=== PATIENT | female | born 1985 | race Caucasian/White ===

== ENCOUNTER → 2018-07-03 09:33 | Outpatient (CLI) | payer MEDICAID, SELFPAY ==
[2018-07-03 10:45] LABS: Hematocrit 38.2 % (37-47); Mean Corp Hgb Conc 31.4 g/gl (32-36); Mean Corpuscular Hgb 26.4 pg (27.0-32.0); Mean Corpuscular Volume 84.1 fL (81-99); Mean Platelet Vol. 11.5 fl (6.2-12.0); Platelet Count 228 K/mm3 (150-450); RBC Distribution Width CV 15.6 % (11.6-14.6); Red Blood Count 4.54 M/mm3 (4.2-5.4); White Blood Count 5.2 K/mm3 (4.4-11.0)
[2018-07-03 10:50] LABS: Scan Indicated on CBC? Y/N NO
[2018-07-03 11:11] LABS: Ferritin 12 ng/mL (8-252); Free T3 3.1 pg/mL (2.18-3.98); T4 Free Direct 0.89 ng/dL (0.76-1.46); Thyroid Stim Hormone (TSH) 0.98 uIU/mL (0.358-3.74)
[2018-07-03 13:22] LABS: Chlamydia Trachomatis by PCR Negative (Negative); Neisserai gonorrhoeae by PCR Negative (Negative); Probe Check PASS; Sample Adequacy Control PASS; Specimen Processing Control PASS
[2018-07-03 13:30] LABS: Probe Check PASS; Sample Adequacy Control PASS; Specimen Processing Control PASS; Trichomonas Vag DNA by PCR Negative (Negative)
[2018-07-04 03:42] LABS: Rapid Plasmin Reagin (RPR) NONREACTIVE (NONREACTIVE)
[2018-07-04 11:29] LABS: Hep C Antibodies <0.1 s/co ratio (0.0-0.9)
[2018-07-04 12:36] LABS: HIV - WCH Non-Reactive (Nonreactive)
[2018-07-09 11:22] LABS: HPV APTIMA, High Risk Negative (Negative)
== END ==
PROVIDERS: Visit Provider Obstetrics & Gynecology
DX: Z12.4 Encounter for screening for malignant neoplasm of cervix (principal); Z11.3 Encounter for screening for infections with a predominantly sexual mode of transmission; N92.0 Excessive and frequent menstruation with regular cycle; E03.9 Hypothyroidism, unspecified
CPT/HCPCS: 36415; 82728; 84439; 84443; 84481; 85027; 86592; 86703; 86803; 87491; 87591; 87661; 88175; G0145

== ENCOUNTER 2018-12-12 06:01 | Day surgery (SDC) | payer MEDICAID, SELFPAY ==
[2018-12-09 14:36] VITALS: BP 124/72; PULSE 81; RESP 16; TEMP 36.7; O2SAT 100; BMI 32.3
[2018-12-09 15:39] LABS: Hematocrit 36.5 % (37-47); Hemoglobin 11.8 g/dl (12.0-15.0); Mean Corp Hgb Conc 32.3 g/gl (32-36); Mean Corpuscular Hgb 27.5 pg (27.0-32.0); Mean Corpuscular Volume 85.1 fL (81-99); Mean Platelet Vol. 12.3 fl (6.2-12.0); Platelet Count 231 K/mm3 (150-450); RBC Distribution Width CV 14.5 % (11.6-14.6); RBC Distribution Width SD 43.9 fl (35.1-43.9); Red Blood Count 4.29 M/mm3 (4.2-5.4); White Blood Count 7.4 K/mm3 (4.4-11.0)
[2018-12-09 15:50] LABS: Scan Indicated on CBC? Y/N NO
[2018-12-09 15:51] LABS: Partial Thromboplast Time 27.3 Seconds (24.1-36.2)
--- NOTE | 2018-12-11 10:10 | HP.PCM_ITS ---
- Problem List (1) Encounter for sterilization Status: Acute History and Physical Date of Admission: 12/12/18 - Preop H&P prepared 12/09/18 Date: 12/09/2018 Name: MALINI GARCIA Age: 33 Date of : 1985 HISTORY OF PRESENT ILLNESS: On 12/09/2018, Malini Garcia, a 33 year old female 1 0 0 0 1, presented for: -- Pre-Op -- Malini is here for pre-op appt. Very anxious regarding anesthesia. Hoping for anesthesia consult today. Does not desire future childbearing. Planning Lab BTO. Consents are signed and packet provided. LMT as above. Plans laparoscopy bilateral salpingectoy. shm ALLERGIES: Nsaids, Laryngeal edema, Amoxicillin, Tachycardia, Flagyl, Sob, Percocet, Tachycardia, Amoxicillin, Tachycardia, Flagyl, Sob, NSAIDS, Laryngeal edema, Percocet and Tachycardia MEDICATIONS HISTORY: Patient is also takin. Ativan 1 mg tablet, One pill by mouth once a day as needed 2. Bystolic 5 mg tablet, One pill by mouth once a day 3. omeprazole 20 mg capsule,delayed release, 1 PO QD 4. ParaGard T 380A 380 square mm intrauterine device, As Directed REVIEW OF SYSTEMS: GENERAL - Denies fever, or chills SKIN - Denies skin changes EYES - Denies visual changes EARS - Denies difficulty hearing NOSE - Denies nasal congestion or bleeding MOUTH - Denies sore throat or difficulty swallowing NECK - Denies pain or swelling RESPIRATORY - Denies shortness of breath or wheezing CARDIOVASCULAR - Denies palpitations or chest pain GASTROINTESTINAL - Denies nausea, vomiting, diarrhea, constipation GENITOURINARY - Denies dysuria, frequency of urination, incontinence of urine MUSCULOSKELETAL - Denies joint or muscle pain NEUROLOGICAL - Denies localized numbness or weakness PSYCHIATRIC - Denies depression or anxiety ENDOCRINE - Denies heat or cold intolerance, weight loss or gain HEMATO-IMMUNOLOGIC - Denies excesive bleeding with cuts PAST HISTORY: Breast/Ovarian/Colon Cancers - Denies Infections - Chlamydia and HPV Illnesses - depression/anxiety, POTs syndrome- tachycardia Accidents - no injuries of consequence History of Abnormal PAPS - YES --unknown severity Hospitalizations - Childbirth ETOH dependency - drinks 4x/wk; SURGICAL HISTORY: 1. [place] Teeth Removal 2. 10/28/2006 breast augmentation MENSTRUAL HISTORY: LMP Known?- ApproximateAmount/Duration - 6-7 DAYS, Regularity - Regular, Frequency - 28 days, LMP - 11/23/18, Age Onset Menarche - 16 PAST PREGNANCIES: Total Pregnancies - 1; Full Term Pregnancies - 1; Premature - 0; Abortions, Induced - 0; Abortions, Spontaneous - 0; Ectopics - 0; Multiple Births - 0; Living Children - 1 FAMILY HISTORY: Father - Unknown Disease; Father - Ischemic heart disease; Father - FH: Hypertension; Mother - Thyroid disease; Sister - Thyroid disease; MaternalGrandparent - FH: Diabetes mellitus type 2; SOCIAL HISTORY: Alcohol Use - occasionally Smoking - smokes 1/3 ppd, ETQ Diet - vegan Lifestyle - moderate stress lifestyle Exercise - active Seat Belt Use - always Employer - [employer] Job Description - [employer] Illicit Drug Use - denies use of street drugs Sexual Activity - multiple sexual partners and 30 partners in past Residence - with daughter Hours Worked - 40 hours per week Children Name(s) - Margaret Control - paragard IUD PHYSICAL EXAMINATION BP- 130/82 Sitting, Right arm, regular cuff Weight- 219.00 lbs Height- 67.75 inch BMI:33.62 CONSTITUTIONAL - NAD, well nourished, and well developed SKIN - No rash, lesions, or ulcers HEENT - normocephalic, atraumatic, sclerae anicteric LUNGS - CTA x2 without wheezes, crackles or rales CARDIAC - Regular rate and rhythm without rubs, murmurs, or gallops ABDOMEN - Without hepatosplenomegaly, distention, masses, rebound, or guarding; normal bowel sounds; no hernias EXTREMITIES - No edema or calf tenderness NEUROLOGICAL - normal gait, normal balance, normal motor PSYCHIATRIC - A and O to time, place, person, mood and affect ASSESSMENT: PLAN BY DIAGNOSIS: 1. Encounter For General Counseling And Advice On Contraception Plan for laparoscopic bilateral salpingectomy for permanent sterilization Procedural r/b/i/a reviewed and consents signed Preop prep reviewed - NPO @ [facility] prior to procedure Preop labs pending NO NSAIDS or OXYCODONE Pt tolerates hydrocodone and tylenol however - will plan this for postoperative pain Will maintain Paragard IUD in interim
[2018-12-12 06:23] VITALS: BP 113/68; PULSE 80; RESP 16; TEMP 36.9; O2SAT 98; BMI 32.3
[2018-12-12 06:30] LABS: Internal QC Validated? YES +Cl - CLEAR BKGD; Pregnancy, Urine Negative Negative
[2018-12-12 07:10] LABS: AST(SGOT) 15 U/L (15-37); Alanine Aminotransfer ALT/SGPT 23 U/L (13-56); Albumin, Serum 3.5 g/dL (3.2-5.0); Alkaline Phosphatase 63 U/L (45-117); Anion Gap 8 (5-15); BUN 13 mg/dL (7-18); BUN/Creat Ratio 17.8 RATIO (10-20); Bilirubin, Direct 0.12 mg/dL (0.00-0.30); Calcium,Total 8.3 mg/dL (8.5-10.1); Chloride 108 mmol/L (98-107); Creatinine, Serum 0.73 mg/dL (0.55-1.02); EST Glomerular Filtration Rate 98 mL/min (>60); Est Glom Filt Rate - Afr Amer 119 mL/min (>60); Estimated Creatinine Clearance 115.62 ml/min; Globulin 3.5 g/dL (2.2-4.2); Glucose 105 mg/dL (74-106); Potassium 4.4 mmol/L (3.5-5.1); Sodium Level 141 mmol/L (136-145)
--- NOTE | 2018-12-12 07:15 | FALS_PTH ---
PATIENT: MALINI NAVARRETE LOC: [facility] [place] U#:[id number] AGE/SX: 33/F ROOM: RE12/12/[address]: Dr. Katlyn Massey MD : 1985 BED: DIS: 12/12/2018 SPEC #: [id number] RECD: 12/12/18 14:58 STATUS: SREEDHAR RESandy #: [id number] LINDA: 12/12/18 07:[address]: Katlyn Ruff DEPT: SURGICAL PATHOLOGY RECD BY: Christ Livingston ENTERED: 12/15/18 08:09 SP TYPE: FALL TUBES OTHR DR: Dr. Darlene Mcnulty, DO Tissues: Fallopian tube Procedures: Surgery Specimen Level II HEADER OPERATION: Laparoscopic salpingectomy PRE-OP DIAGNOSIS: Sterilization request TISSUE SUBMITTED: Bilateral fallopian tubes (tie on right) MICROSCOPIC DIAGNOSIS Bilateral fallopian tubes, salpingectomy: Bilateral fallopian tubes including fimbrial ends, no pathologic diagnosis. Left paratubal cyst. ALLYSSA:jose 12/16/18 MICROSCOPIC DESCRIPTION Slides are reviewed. GROSS DESCRIPTION Received is one container labeled with the patient's name and designated bilateral fallopian tubes. The specimen consists of bilateral fallopian tubes including fimbrial ends. The right tube is identified by a tie and measures 4.5 cm in length and 0.5 cm in diameter. The fallopian tube measures 5 cm in length and 0.5 cm in diameter. A paratubal cyst is noted measuring 0.8 cm in greatest dimension. A piece of adipose tissue is also attached adjacent to the paratubal cyst measuring 1 cm in greatest dimension. Sections reveal unremarkable cut surfaces. Advertiser sections are submitted in two cassettes as follows: 1 - right fallopian, 2 - left fallopian tube, paratubal cyst and adipose tissue. / ALLYSSA:jose 12/15/18 TC:5 CPT: 66968 x2
[2018-12-12] MEDS: Bupivacaine Mpf 0.5% 30 ML VIAL (08:00)
--- NOTE | 2018-12-12 08:06 | PCM.DC ---
- Discharge Diagnoses Current Active Problems: Laparoscopy Reason(s) for Visit for Discharge Instructions: Laparoscopic tube removal (salpingectomy) You will use the following diet at home:: No restrictions Your food should be the consistency of: Regular Discharge Activity: Return to Normal Activity May resume sexual activity in: - - 2-4 weeks Lifting Restrictions: 10 lb for 2 weeks Call your doctor if you observe: Fever of 101 or Higher, Inability to urinate, Inability to have a bowel movement, Using more than one pad per hour, Shortness of breath, Chest pain, Calf discomfort, Uncontrolled pain Suture Line Care: Avoid Pulling/Pushing Remove Dressing in (days):: 1 Cleanse incision/area with: Soap & Water Allergies/Adverse Reactions: Allergies amoxicillin [Amoxicillin] Allergy (Verified 12/09/18 14:24) Other metronidazole [From Flagyl] Allergy (Verified 12/09/18 14:24) Other Metronidazole HCl [From Flagyl] Allergy (Verified 12/09/18 14:24) Other NSAIDS (Non-Steroidal Anti-Inflamma Allergy (Verified 12/09/18 14:24) Angioedema oxycodone HCl [From Percocet] Adverse Reaction (Verified 12/09/18 14:24) Other Medications to take at Discharge Ferrous Sulfate 65 mg PO DAILY 12/09/18 L.acidoph,Paracasei, B.lactis [Probiotic] 1 each PO DAILY 12/09/18 Lorazepam [Ativan] 1 mg PO BID PRN PRN 12/09/18 Nebivolol HCl [Bystolic] 5 mg PO DAILY 12/09/18 Omeprazole [Prilosec] 20 mg PO DAILY 12/09/18 Docusate Sodium [Colace] 100 mg PO BID PRN PRN #60 capsule 12/12/18 Hydrocodone/Acetaminophen [Hydrocodon-Acetaminophen 5-325] 1 each PO Q6H PRN 7 Days #20 tablet 12/12/18 The following prescriptions were given: Docusate Sodium [Colace] 100 mg PO BID PRN PRN #60 capsule PRN Reason: Constipation Hydrocodone/Acetaminophen [Hydrocodon-Acetaminophen 5-325] 1 each PO Q6H PRN 7 Days #20 tablet PRN Reason: Severe Pain (6-10/10) Orders to be completed after discharge: Type & Screen Time Frame: 12/09/18, Facility: [facility], Location: Laboratory Partial Thromboplast Time Time Frame: 12/09/18, Location: Laboratory Basic Metabolic Profile (BMP) Time Frame: 12/09/18, Location: Laboratory CBC-Complete Blood Cnt No Diff Time Frame: 12/09/18, Location: Laboratory Liver Profile Time Frame: 12/09/18, Location: Laboratory Prothrombin Time w/INR Time Frame: 12/09/18, Location: Laboratory Primary Care Physician: Darlene Mcnulty DO [Primary Care Provider] - Test Results: Test results from this visit will be discussed in further detail at your follow-up appointment, if applicable. Please Follow Up With: Katlyn Rowan MD When: 2-4 weeks
--- NOTE | 2018-12-12 08:11 | PCM.OPRPT ---
Problem List (1) Encounter for sterilization Status: Acute Report of Operation Date of Procedure: 12/12/18 Pre-Operative Diagnosis: Sterilization request Post-Operative Diagnosis: Sterilization request Surgery/Procedure Performed:: Laparoscopic bilateral salpingectomy Description of Surgical Findings:: Normal-appearing uterus, tubes and ovaries senior investigator: Sean Lucero Type of Anesthesia:: General, Local Anesthesiologist: Romie Gong Specimen's removed: Right and left tubes Drains: Urine output 5 cc Estimated Blood Loss (mL): 3 cc Fluids Replaced: 800 cc Description of Procedure: Indications: Patient is a 33-year-old 1 para 1 desiring permanent sterilization. She was counseled regarding various sterilization methods as well as reversible contraceptives and opted to proceed with laparoscopic bilateral salpingectomy. Risks, benefits, indications and alternatives of procedure were reviewed. Informed consent was obtained. Procedure: The patient was taken to the operating room and sinus performed. She is placed in a dorsal supine position and induced under general anesthesia and intubated. She is then placed into dorsal lithotomy and her arms tucked at her sides. An examination under anesthesia was performed. The perineum and abdomen were prepped and draped in sterile fashion. Straight catheterization of the bladder was performed. Patient was placed into high lithotomy and the cervix was visualized and grasped using a single-tooth tenaculum tenaculum. [place] cannula was placed and secured to the tenaculum for uterine manipulation. Patient was placed into low lithotomy attention turned to the abdomen. An infraumbilical incision was made using a scalpel following infiltration with half percent Marcaine. Veress needle was placed with successful hanging drop test and no aspirate in the abdomen was insufflated to 15 mmHg. The Veress needle was removed and a 5 mm trocar was placed under laparoscopic guidance confirming entry into the abdominal cavity. A suprapubic pain administration was performed as well as placement of a second 5 mm port. The abdomen and pelvis were inspected uterus was notably retroverted thus I opted to proceed with placement of right and left lower quadrant 5 mm ports following local administration of Marcaine. Attention was turned to the left adnexa the left tubal fimbria was identified and salpingectomy performed using the Enseal device transecting the mesosalpinx distally and proximally to the level of the uterine cornua. In similar fashion right salpingectomy was also performed. The tubes were removed via the ports. There was excellent hemostasis. The procedure was deemed complete. The abdomen was desufflated and trochars removed from the abdomen. The skin was closed using 4-0 Monocryl and OpSite dressing and Steri-Strips were placed over the incisions. The patient was awakened, extubated and transferred to the recovery room without complication. She tolerated the procedure well. Sponge and needle counts were correct x2. - Complications None - Admit VTE Documentation VTE Present on Admission: No VTE Mechan Device Prophylaxis: SCD's VTE Pharm Prophylaxis ordered?: No
--- NOTE | 2018-12-12 08:16 | OP.PCM_ITS ---
Problem List (1) Encounter for sterilization Status: Acute Report of Operation Date of Procedure: 12/12/18 Pre-Operative Diagnosis: Sterilization request Post-Operative Diagnosis: Sterilization request Surgery/Procedure Performed:: Laparoscopic bilateral salpingectomy Description of Surgical Findings:: Normal-appearing uterus, tubes and ovaries reservationist: Sean Lucero Type of Anesthesia:: General, Local Anesthesiologist: Romie Gong Specimen's removed: Right and left tubes Drains: Urine output 5 cc Estimated Blood Loss (mL): 3 cc Fluids Replaced: 800 cc Description of Procedure: Indications: Patient is a 33-year-old 1 para 1 desiring permanent sterilization. She was counseled regarding various sterilization methods as well as reversible contraceptives and opted to proceed with laparoscopic bilateral salpingectomy. Risks, benefits, indications and alternatives of procedure were reviewed. Informed consent was obtained. Procedure: The patient was taken to the operating room and sinus performed. She is placed in a dorsal supine position and induced under general anesthesia and intubated. She is then placed into dorsal lithotomy and her arms tucked at her sides. An examination under anesthesia was performed. The perineum and abdomen were prepped and draped in sterile fashion. Straight catheterization of the bladder was performed. Patient was placed into high lithotomy and the cervix was visualized and grasped using a single-tooth tenaculum tenaculum. [place] cannula was placed and secured to the tenaculum for uterine manipulation. Patient was placed into low lithotomy attention turned to the abdomen. An infraumbilical incision was made using a scalpel following infiltration with half percent Marcaine. Veress needle was placed with successful hanging drop test and no aspirate in the abdomen was insufflated to 15 mmHg. The Veress needle was removed and a 5 mm trocar was placed under laparoscopic guidance confirming entry into the abdominal cavity. A suprapubic pain administration was performed as well as placement of a second 5 mm port. The abdomen and pelvis were inspected uterus was notably retroverted thus I opted to proceed with placement of right and left lower quadrant 5 mm ports following local administration of Marcaine. Attention was turned to the left adnexa the left tubal fimbria was identified and salpingectomy performed using the Enseal device transecting the mesosalpinx distally and proximally to the level of the uterine cornua. In similar fashion right salpingectomy was also performed. The tubes were removed via the ports. There was excellent hemostasis. The procedure was deemed complete. The abdomen was desufflated and trochars removed from the abdomen. The skin was closed using 4-0 Monocryl and OpSite dressing and Steri- Strips were placed over the incisions. The patient was awakened, extubated and transferred to the recovery room without complication. She tolerated the procedure well. Sponge and needle counts were correct x2. - Complications None - Admit VTE Documentation VTE Present on Admission: No VTE Mechan Device Prophylaxis: SCD's VTE Pharm Prophylaxis ordered?: No
[2018-12-12 08:18] VITALS: BP 107/57; BP 113/68; PULSE 90; RESP 16; TEMP 36.3; O2SAT 97
[2018-12-12 08:30] VITALS: BP 102/56; BP 113/68; PULSE 77; RESP 16; O2SAT 99
[2018-12-12 08:45] VITALS: BP 105/60; BP 113/68; PULSE 70; RESP 16; O2SAT 98
[2018-12-12 08:58] VITALS: BP 107/49; BP 113/68; PULSE 69; RESP 16; TEMP 36.5; O2SAT 98
[2018-12-12 11:40] VITALS: BP 113/68; BP 123/60; PULSE 75; RESP 16; TEMP 36.3; O2SAT 97
[2018-12-12] MEDS: HYDROcodone Bitartrate/Apap 5/325 Tablet PO (12:08)
== END 2018-12-12 12:11 | disposition home or self-care (01) ==
LOC: SDC 06:02 → AC 06:02
PROVIDERS: Family Provider Family Medicine; PCP Family Medicine; Referring Provider Obstetrics & Gynecology; Visit Provider Obstetrics & Gynecology
PROC: (CPT 58661; principal; 2018-12-12 07:00)
DX: Z30.2 Encounter for sterilization (principal); N83.8 Other noninflammatory disorders of ovary, fallopian tube and broad ligament; Z41.1 Encounter for cosmetic surgery; F17.210 Nicotine dependence, cigarettes, uncomplicated; Z97.5 Presence of (intrauterine) contraceptive device
CPT/HCPCS: 00840; 58661; 36415; 80048; 80076; 81025; 85027; 85610; 85730; 86850; 86900; 88302; J7120; C1760; J2405

== ENCOUNTER → 2018-12-23 18:33 | Outpatient (CLI) | payer MEDICAID, SELFPAY ==
[2018-12-12 06:23] VITALS: BMI 32.3
[2018-12-23 18:36] LABS: Red Blood Cells-Urine 0 SEEN /hpf (0-5)
[2018-12-23 19:52] LABS: Color, Urine Yellow (Yellow); Glucose, Dipstick Normal (Normal); Ketone-Dipstick 5 mg/dl (Negative); Leukocyte Esterase-Dipstick 100 /ul (Negative); Nitrite-Dipstick Negative (Negative); Occult Blood-Urine 10 /ul (Negative); Protein-Dipstick 15 mg/dl (Negative); Specific Gravity, Urine 1.025 (1.002-1.030); Urine Bilirubin Dipstick Negative (Negative); Urine Clarity Clear (Clear); Urine Urobilinogen 1 mg/dl (Normal)
[2018-12-23 20:01] LABS: Bacteria RARE /hpf (None Seen); Mucous, Urine 3+ /hpf (<or=2+); Squamous Epithelial Cells - UA 5-10 SEEN /hpf (5-10); White Blood Cells 0-5 SEEN /hpf (0-5)
== END ==
PROVIDERS: Family Provider Family Medicine; PCP Family Medicine; Referring Provider Obstetrics & Gynecology; Visit Provider Obstetrics & Gynecology
DX: N39.0 Urinary tract infection, site not specified (principal)
CPT/HCPCS: 81001

== ENCOUNTER 2019-02-02 18:11 | Emergency (ER) | payer MEDICAID, SELFPAY ==
[2019-02-02 18:11] VITALS: BP 143/69; PULSE 75; RESP 16; TEMP 36.3; O2SAT 98; BMI 32.5
--- NOTE | 2019-02-02 18:27 | ED.VIS.GEN ---
History of Present Illness Chief Complaint: Head Injury Informant: Patient Onset: Days - Blunt head trauma 3 days ago, Saturday Context: Sudden Onset Timing: Continuous Quality: Headache, sleeping more, photophobia, sensation of fog Location: Not applicable Current Severity: Mild Maximum Severity: Mild Worsened by: Head trauma Relieved by: Nothing Associated Symptoms: As after mentioned Narrative: Patient is a 33-year-old woman with history of coronary malformation who was sent to the emergency room after discussing her history with urgent care. She sustained blunt trauma on Saturday. There is no loss conscious. There is no history of vomiting. She does feel nauseous. She has had problems with sleep and light sensitivity. She is also had problems with feeling foggy. Prior similar symptoms: No Recent Illness/Hospitalization: No - Past Medical History (1) Supraventricular tachycardia Status: Chronic (2) History of breast augmentation Status: Resolved Past Medical History - Allergies and Home Meds Allergies/Adverse Reactions: Allergies amoxicillin [Amoxicillin] Allergy (Verified 02/02/19 18:14) Other metronidazole [From Flagyl] Allergy (Verified 02/02/19 18:14) Other Metronidazole HCl [From Flagyl] Allergy (Verified 02/02/19 18:14) Other NSAIDS (Non-Steroidal Anti-Inflamma Allergy (Verified 02/02/19 18:14) Angioedema oxycodone HCl [From Percocet] Adverse Reaction (Verified 02/02/19 18:14) Other Primary Care Physician: Darlene Mcnulty DO [Primary Care Provider] - Prior records reviewed: Yes Surgical History: noncontributory Lives: With Family Smoking Status: Current every day smoker Drugs: None Review of Systems General: Denies: Chills, Fever, Malaise, Subjective, Sweats Eyes: Reports: - - Patient does report light sensitivity. Denies: Visual changes - bilaterally, Blurred Vision - bilaterally, Diplopia ENT: Denies: Bilateral ear pain, Rhinorrhea, Sore throat Cardiovascular: Denies: Chest pain, Palpitations Respiratory: Denies: Dyspnea, Cough, Dyspnea on exertion Gastrointestinal: Reports: Nausea. Denies: Abdominal pain, Vomiting, Diarrhea, Constipation, Melena, Hematochezia, -, - Musculoskeletal: Denies: Myalgias, Arthralgias, Neck pain, Back pain, Swelling, Extremity Pain, -, - Skin: Denies: Rash, Wounds Neurological: Reports: Headache. Denies: Weakness, Parasthesia, Numbness, -, - Hematologic: Denies: Easy bruising, Easy bleeding Physical Exam Vital Signs/Narrative: Vital Signs Temp Pulse Resp BP Pulse Ox 02/02/19 18:11 97.3 F L 75 16 143/69 H 98 Inital Vital Signs reviewed: Yes General: Well nourished, Well developed, No Acute Distress Head: Normocephalic, Atraumatic, - - No clinical findings of basilar skull fracture.. Negative for: Trauma, Tenderness Eyes: Perrl, EOMI. Negative for: Pale conjunctiva, Scleral icterus, - - Funduscopic exam reveals normal cup-to-disc ratio. There is no papilledema. Venous pulsations noted bilaterally. There is no evidence on exam of photophobia. ENT: Moist mucous membranes, No rhinorrhea Neck: Supple, Nontender, No lymphadenopathy, No JVD Cardiovascular: Regular rate, Regular rhythm, No murmurs, Normal S1, Normal S2 Respiratory: No distress, CTA bilaterally, Chest nontender Extremities: Nontender, No edema Skin: Normal color, No rash Neurological: Alert, Oriented x3, Cranial nerves II-XII grossly intact, Normal Strength, Normal Sensation, Normal DTR, Normal Gait Psychological: Normal affect, Normal Mood Diagnostic/Tx/Re-eval - Medical Decision Making Patient with history consistent with concussion. With normal neurologic exam based on the [place] CT head rule and [place] rule radiologic imaging is not indicated or warranted. I was asked if it was okay for her to fly. Apparently she has a planned flight and the next month. Patient was told she may. ED Disposition - Plan for ED Patient: Disposition: Home or Assisted Living Diagnosis: Concussion without loss of consciousness, initial encounter Instructions: ED Concussion Referrals: Darlene Mcnulty DO [Primary Care Provider] - As Needed
[2019-02-02 18:36] VITALS: PULSE 75; RESP 16; O2SAT 98
== END 2019-02-02 18:44 | disposition home or self-care (01) ==
LOC: ED 18:44
PROVIDERS: Emergency Provider Emergency Medicine; Family Provider Family Medicine; PCP Family Medicine
DX: S06.0X0A Concussion without loss of consciousness, initial encounter (principal); X58.XXXA Exposure to other specified factors, initial encounter; Y93.9 Activity, unspecified; Y92.9 Unspecified place or not applicable; F17.200 Nicotine dependence, unspecified, uncomplicated
CPT/HCPCS: 99282

== ENCOUNTER → 2019-10-01 16:03 | Outpatient (CLI) | payer MEDICAID, SELFPAY | PROVIDERS: Family Provider Family Medicine; PCP Family Medicine; Visit Provider Obstetrics & Gynecology | DX: Z12.4 Encounter for screening for malignant neoplasm of cervix (principal); Z11.3 Encounter for screening for infections with a predominantly sexual mode of transmission ==

== ENCOUNTER → 2020-07-14 11:45 | Outpatient (CLI) | payer MEDICAID, SELFPAY ==
[2020-07-14 15:53] LABS: Absolute Lymphocyte Count 1.67 X10^3/uL (0.83-4.51); Absolute Neutrophil Count 2.2 X10^3/uL (2.0-7.7); Basophil# 0.04 X10^3/uL; Basophil% 0.9 % (0-1); Eosinophil# 0.17 X10^3/uL; Eosinophils% 3.7 % (0-5); Hematocrit 34.6 % (37-47); Hemoglobin 10.3 g/dL (12.0-15.0); Lymphocyte # 1.67 X10^3/ul (4.0); Lymphocyte % 36.8 % (19-41); Mean Corp Hgb Conc 29.8 g/dL (32-36); Mean Corpuscular Hgb 23.4 pg (27.0-32.0); Mean Corpuscular Volume 78.6 fL (81-99); Mean Platelet Vol. 11.7 fl (6.2-12.0); Monocyte# 0.47 X10^3/uL; Monocyte% 10.4 % (0-10); NRBC Flagged by Analyzer 0 % (0-5); Neutrophil # 2.18 X10^3/uL (2.7-7.7); Platelet Count 269 K/mm3 (150-450); RBC Distribution Width CV 17.2 % (11.6-14.6); RBC Distribution Width SD 49.2 fl (35.1-43.9); White Blood Count 4.5 K/mm3 (4.4-11.0)
[2020-07-14 16:12] LABS: ALB/GLOB Ratio 1.1 RATIO (0.9-2.4); AST(SGOT) 17 U/L (15-37); Alanine Aminotransfer ALT/SGPT 35 U/L (13-56); Albumin, Serum 3.7 g/dL (3.2-5.0); Alkaline Phosphatase 58 U/L (45-117); Anion Gap 6 (5-15); BUN 10 mg/dL (7-18); BUN/Creat Ratio 14.8 RATIO (10-20); Calcium,Total 8.8 mg/dL (8.5-10.1); Chloride 109 mmol/L (98-107); Cholesterol 195 mg/dL (200); Creatinine, Serum 0.68 mg/dL (0.55-1.02); EST Glomerular Filtration Rate 106 mL/min (>60); Est Glom Filt Rate - Afr Amer 129 mL/min (>60); Ferritin 4 ng/mL (8-252); Free T3 2.9 pg/mL (2.18-3.98); Globulin 3.5 g/dL (2.2-4.2); Glucose 82 mg/dL (74-106); High Density Lipoprotein 34 mg/dL; Iron 27 ug/dL (50-170); Potassium 4.1 mmol/L (3.5-5.1); Protein, Total 7.2 g/dL (6.4-8.2); Sodium Level 143 mmol/L (136-145); Thyroid Stim Hormone (TSH) 0.37 uIU/mL (0.358-3.74); Triglycerides 102 mg/dL; Very Low Density Lipoprotein 20 mg/dL (5-40)
== END ==
PROVIDERS: PCP Family Medicine; Visit Provider Family Medicine
DX: D64.9 Anemia, unspecified (principal); E61.1 Iron deficiency; E78.5 Hyperlipidemia, unspecified; Z51.81 Encounter for therapeutic drug level monitoring; R53.83 Other fatigue
CPT/HCPCS: 36415; 80053; 80061; 82728; 83540; 84443; 84481; 85025

== ENCOUNTER → 2020-07-21 16:03 | Outpatient (CLI) | payer MEDICAID, SELFPAY ==
[2020-07-21 17:17] LABS: Absolute Lymphocyte Count 2.15 X10^3/uL (0.83-4.51); Absolute Neutrophil Count 2.7 X10^3/uL (2.0-7.7); Basophil# 0.03 X10^3/uL; Basophil% 0.5 % (0-1); Eosinophil# 0.16 X10^3/uL; Eosinophils% 2.8 % (0-5); Hematocrit 35.2 % (37-47); Hemoglobin 10.6 g/dL (12.0-15.0); Lymphocyte # 2.15 X10^3/ul (4.0); Lymphocyte % 37.4 % (19-41); Mean Corp Hgb Conc 30.1 g/dL (32-36); Mean Corpuscular Hgb 23.3 pg (27.0-32.0); Mean Corpuscular Volume 77.5 fL (81-99); Mean Platelet Vol. 11.9 fl (6.2-12.0); Monocyte# 0.66 X10^3/uL; Monocyte% 11.5 % (0-10); NRBC Flagged by Analyzer 0 % (0-5); Neutrophil # 2.73 X10^3/uL (2.7-7.7); Neutrophil % 47.5 % (47-70); Platelet Count 283 K/mm3 (150-450); RBC Distribution Width CV 17.4 % (11.6-14.6); RBC Distribution Width SD 49.1 fl (35.1-43.9); Red Blood Count 4.54 M/mm3 (4.2-5.4); White Blood Count 5.8 K/mm3 (4.4-11.0)
[2020-07-25 20:06] LABS: Endomysial Antibody IgA Negative (Negative)
[2020-07-25 21:35] LABS: Immunoglobulin A 253 mg/dL (87-352); t-Transglutaminase IgA <2 U/mL (0-3)
== END ==
PROVIDERS: PCP Family Medicine
DX: R19.7 Diarrhea, unspecified (principal)
CPT/HCPCS: 36415; 82784; 83516; 85025; 86255; 87177; 87209

== ENCOUNTER → 2020-08-12 19:54 | Outpatient (CLI) | payer MEDICAID, SELFPAY | PROVIDERS: PCP Family Medicine; Referring Provider Family Medicine; Visit Provider Family Medicine | DX: G47.10 Hypersomnia, unspecified (principal); R06.83 Snoring; R06.81 Apnea, not elsewhere classified; Z83.6 Family history of other diseases of the respiratory system | CPT/HCPCS: 95810 ==

== ENCOUNTER → 2020-10-03 13:41 | Outpatient (CLI) | payer MEDICAID, SELFPAY ==
[2020-09-30 12:29] VITALS: BMI 34.4
--- NOTE | 2020-10-03 13:44 | RAD_ITS ---
STUDY: X-RAY CHEST REASON FOR EXAM: Female, 34 years old. covid + last month, still sob and having some chest/lung pain TECHNIQUE: PA and lateral views of the chest. COMPARISON: Comparison is made with prior study dated 03/15/2014. FINDINGS: The lungs are clear and expanded. Scattered calcified granulomas. There is no demonstrated pleural abnormality. Normal size heart. Normal mediastinum and shivam. Normal visualized pulmonary arteries. Normal visualized aortic arch and descending thoracic aorta. Normal visualized thoracic spine. Normal visualized ribs, clavicles, and shoulders. There is no demonstrated abnormality of the visualized soft tissue structures of the upper abdomen. RAD/Chest PA and Lateral IMPRESSION: Normal x-ray examination of the chest. Electronically Signed: Jeffry Miranda, at 15:45 EST , Service support ,
== END ==
PROVIDERS: PCP Family Medicine; Referring Provider Family Medicine; Visit Provider Family Medicine
DX: R06.00 Dyspnea, unspecified (principal); Z86.19 Personal history of other infectious and parasitic diseases
CPT/HCPCS: 71046

== ENCOUNTER → 2020-10-07 17:04 | Outpatient (CLI) | payer MEDICAID, SELFPAY ==
[2020-09-30 12:29] VITALS: BMI 34.4
== END ==
PROVIDERS: PCP Family Medicine; Visit Provider Obstetrics & Gynecology
DX: N76.0 Acute vaginitis (principal); N77.0 Ulceration of vulva in diseases classified elsewhere

== ENCOUNTER → 2020-11-18 12:44 | Outpatient (CLI) | payer MEDICAID, SELFPAY ==
[2020-10-14 12:36] VITALS: BMI 34.4
[2020-11-18 14:52] LABS: Absolute Lymphocyte Count 1.82 X10^3/uL (0.83-4.51); Absolute Neutrophil Count 2.2 X10^3/uL (2.0-7.7); Basophil# 0.03 X10^3/uL; Basophil% 0.6 % (0-1); Eosinophil# 0.12 X10^3/uL; Eosinophils% 2.6 % (0-5); Hematocrit 40.2 % (37-47); Hemoglobin 12.7 g/dL (12.0-15.0); Lymphocyte # 1.82 X10^3/ul (4.0); Lymphocyte % 38.7 % (19-41); Mean Corp Hgb Conc 31.6 g/dL (32-36); Mean Corpuscular Hgb 26.7 pg (27.0-32.0); Mean Corpuscular Volume 84.6 fL (81-99); Mean Platelet Vol. 11.8 fl (6.2-12.0); Monocyte% 10.6 % (0-10); NRBC Flagged by Analyzer 0 % (0-5); Neutrophil # 2.22 X10^3/uL (2.7-7.7); Neutrophil % 47.3 % (47-70); Platelet Count 235 K/mm3 (150-450); RBC Distribution Width CV 15.9 % (11.6-14.6); RBC Distribution Width SD 49.3 fl (35.1-43.9); Red Blood Count 4.75 M/mm3 (4.2-5.4); White Blood Count 4.7 K/mm3 (4.4-11.0)
[2020-11-18 15:41] LABS: Vitamin B12 405 pg/mL (211-911)
[2020-11-18 15:50] LABS: Ferritin 88 ng/mL (8-252); Iron 54 ug/dL (50-170); Iron Binding Capacity,Total 341 ug/dL (250-450); PERCENT IRON SATURATION 15.8 % (15.0-55.0)
== END ==
PROVIDERS: PCP Family Medicine; Referring Provider Internal Medicine Hematology & Oncology; Visit Provider Internal Medicine Hematology & Oncology
DX: D50.0 Iron deficiency anemia secondary to blood loss (chronic) (principal)
CPT/HCPCS: 36415; 82607; 82728; 82746; 83540; 83550; 85025

== ENCOUNTER → 2020-12-02 12:51 | Outpatient (CLI) | payer MEDICAID, SELFPAY ==
[2020-11-25 12:44] VITALS: BMI 34.5
--- NOTE | 2020-12-02 13:02 | ECHOD_ITS ---
Reason For Study: Afib/Flutter Procedure This was a 2D Doppler, Color Flow transthoracic echocardiogram. Technically difficult study due to breast augmentation. Exam performed in department. Left Ventricle Normal LV size. Left ventricular systolic function is normal. The estimated ejection fraction is 55 %. No regional wall motion abnormalities noted. Right Ventricle Normal RV size. Normal systolic function. Atria Normal left atrium. Normal right atrium. Mitral Valve Normal mitral valve. Tricuspid Valve Normal tricuspid valve. Aortic Valve Normal aortic valve. Trisinus/trileaflet aortic valve. Pulmonic Valve Normal pulmonic valve. Great Vessels Normal aortic root. The pulmonary artery is normal size. Normal inferior vena cava. Pericardium/Pleural No pericardial effusion. MMode/2D Measurements & Calculations LVIDd: 4.1 cm IVSd: 1.1 cm LA dimension: 3.3 cm LVIDs: 3.0 cm LVPWd: 1.1 cm FS: 26.5 % LAV(MOD-sp4): 39.1 ml LA A4 area: 15.0 cm2 RA A4 area: 10.3 cm2 Time Measurements MV dec time: 0.21 sec Doppler Measurements & Calculations MV E max toño: 86.1 cm/sec Lat Peak E' Toño: 18.8 cm/sec Med Peak E' Toño: 11.5 cm/sec MV A max toño: 44.5 cm/sec E/E' lat: 4.6 E/E' med: 7.5 MV E/A: 1.9 MV V2 max: 93.8 cm/sec MV P1/2t max toño: 95.1 cm/sec Ao V2 max: 122.6 cm/sec MV max P.5 mmHg MV P1/2t: 85.0 msec Ao max P.0 mmHg MV V2 mean: 50.4 cm/sec MV dec slope: 327.8 cm/sec2 MV mean P.2 mmHg MVA(P1/2t): 2.6 cm2 MV V2 VTI: 26.1 cm LV V1 max: 109.2 cm/sec PA V2 max: 103.0 cm/sec LV V1 max P.8 mmHg Interpretation Summary Normal LV size. Left ventricular systolic function is normal. The estimated ejection fraction is 55 %. Structurally normal valves. Ordering Physician: Jimmy Peters Referring Physician: Darlene Mcnulty Performed By: Melecio Fisher RCS
== END ==
PROVIDERS: PCP Family Medicine; Referring Provider Internal Medicine Cardiovascular Disease; Visit Provider Internal Medicine Cardiovascular Disease
DX: R00.2 Palpitations (principal)
CPT/HCPCS: 93225; 93226; 93306

== ENCOUNTER → 2021-02-15 15:49 | Outpatient (CLI) | payer MEDICAID, SELFPAY ==
[2021-02-03 14:37] VITALS: BMI 35.6
[2021-02-15 16:57] LABS: Absolute Lymphocyte Count 1.96 X10^3/uL (0.83-4.51); Absolute Neutrophil Count 2.5 X10^3/uL (2.0-7.7); Basophil# 0.03 X10^3/uL; Basophil% 0.6 % (0-1); Eosinophil# 0.19 X10^3/uL; Eosinophils% 3.6 % (0-5); Hematocrit 42.6 % (37-47); Hemoglobin 13.4 g/dL (12.0-15.0); Lymphocyte # 1.96 X10^3/ul (0.83-4.51); Lymphocyte % 36.7 % (19-41); Mean Corp Hgb Conc 31.5 g/dL (32-36); Mean Corpuscular Hgb 27.9 pg (27.0-32.0); Mean Corpuscular Volume 88.8 fL (81-99); Mean Platelet Vol. 11.3 fl (6.2-12.0); Monocyte# 0.63 X10^3/uL; Monocyte% 11.8 % (0-10); NRBC Flagged by Analyzer 0 % (0-5); Neutrophil # 2.51 X10^3/uL (2.7-7.7); Neutrophil % 46.9 % (47-70); Platelet Count 272 K/mm3 (150-450); RBC Distribution Width CV 12.9 % (11.6-14.6); RBC Distribution Width SD 42.5 fl (35.1-43.9); White Blood Count 5.3 K/mm3 (4.4-11.0)
[2021-02-15 17:19] LABS: Ferritin 42 ng/mL (8-252); Iron 58 ug/dL (50-170); Iron Binding Capacity,Total 373 ug/dL (250-450); PERCENT IRON SATURATION 15.5 % (15.0-55.0)
== END ==
PROVIDERS: PCP Family Medicine; Visit Provider Internal Medicine Hematology & Oncology
DX: D50.0 Iron deficiency anemia secondary to blood loss (chronic) (principal)
CPT/HCPCS: 36415; 82728; 83540; 83550; 85025

== ENCOUNTER 2021-03-19 21:17 | Emergency (ER) | payer MEDICAID, SELFPAY ==
[2021-02-03 14:37] VITALS: BMI 35.6
[2021-03-19 21:18] VITALS: BP 154/79; PULSE 83; RESP 14; TEMP 35.9; O2SAT 98; BMI 34.4
--- NOTE | 2021-03-19 21:51 | ED.VIS.GI ---
HPI HPI - GI History of Present Illness Chief Complaint: GI Bleed Detail of Chief Complaint: Rectal bleeding that started today Informant: patient Narrative Narrative: Patient presents to the emergency department complaint of rectal bleeding that she has had x2 today. Patient states that she has a lot of GI issues and has been diagnosed with irritable bowel syndrome. Her last colonoscopy was 5 years ago. No family history of inflammatory bowel disease. She is never been diagnosed with Crohn's or ulcerative colitis. She has had some mild abdominal cramping today but nothing out of the ordinary. She denies nausea or vomiting. She denies hematemesis. Patient denies any trauma to her rectum. She does not have a history of hemorrhoids. [facility] Medical History (Updated 03/19/21 @ 22:[address] Kevin Ac, ) Alcohol abuse Chiari I malformation Chronic headaches COVID-19 virus detected (08/2020) Depression Encounter for sterilization Fatigue GERD (gastroesophageal reflux disease) History of pneumonia History of pulmonary hypertension Iron deficiency anemia due to chronic blood loss Nicotine dependence Nonrheumatic mitral (valve) prolapse Obesity Obstructive sleep apnea POTS (postural orthostatic tachycardia syndrome) Snoring Supraventricular tachycardia UTI (urinary tract infection) Home Medications L.acidoph, paracasei,B. lactis 1 ea PO DAILY 12/09/18 [History Last Taken Unknown] lorazepam 1 mg PO BID PRN PRN 12/09/18 [History Last Taken Unknown] omeprazole 20 mg PO DAILY 12/09/18 [History Last Taken 12/12/18] ascorbic acid (vitamin C) 1,000 mg tablet 1 g PO DAILY tab 08/24/20 [History Last Taken Unknown] cholecalciferol (vitamin D3) 50 mcg (2,000 unit) capsule 50 mcg PO DAILY 08/24/20 [History Last Taken Unknown] loperamide 2 mg capsule 2 mg PO Q6H PRN 11/25/20 [History Last Taken Unknown] nebivolol 5 mg tablet 5 mg PO DAILY tablet 02/03/21 [History Last Taken Unknown] Allergy/AdvReac Type Severity Reaction Status Date / Time amoxicillin [Amoxicillin] Allergy Other Verified 03/19/21 21:18 metronidazole [From Flagyl] Allergy Other Verified 03/19/21 21:18 Metronidazole HCl Allergy Other Verified 03/19/21 21:18 [From Flagyl] NSAIDS (Non-Steroidal Allergy Angioedema Verified 03/19/21 21:18 Anti-Inflamma oxycodone HCl [From Percocet] AdvReac Other Verified 03/19/21 21:18 Family History Father Sleep apnea Sister Hypertension Thyroid disorder Grandmother Cancer lung Diabetes Grandfather Cancer lung Mother Thyroid disorder Surgical History History of bilateral salpingectomy History of breast augmentation Social History (Updated 02/03/21 @ 15:[address] Jimmy Peters MD) Smoking Status: Current every day smoker alcohol intake: current details: Occasional substance use type: does not use ROS ROS ED Constitutional Constitutional ED: Reports systems reviewed and no addt'l complaints, except as documented; Denies body ache(s), change in weight or chills Eyes Eyes: Denies acute decrease in peripheral vision, change in vision, double vision or loss of vision ENT ENT ED: Reports none; Denies ear pain, lip swelling, loss taste/smell, neck pain, otalgia or sore throat Cardiovascular Cardiovascular: Reports none; Denies abdominal pain, chest pain with activity, leg edema, lightheadedness, palpitations, rapid heart rate or syncope Respiratory/Chest Respiratory/Chest: Reports none; Denies change in mental status, dry cough, dyspnea, hemoptysis, shortness of breath at rest or shortness of breath with exertion Gastrointestinal Gastrointestinal: Reports none, nausea and other Details: Rectal bleeding, bright red blood ; Denies abdominal pain, change in stool character, diarrhea, hematemesis, hematochezia, melena, rectal bleeding or vomiting Genitourinary Genitourinary ED: Reports none; Denies abdominal discomfort, anuria, dysuria, genital pain or polyuria Musculoskeletal Musculoskeletal: Reports none; Denies arthralgias, back pain, difficulty walking, extremity pain, muscle weakness or myalgias Integumentary Reports none; Denies abscess or rash Neurologic Neurologic: Reports none; Denies abnormal gait, confusion, focal weakness, frequent falls, headache(s), loss of vision, numbness, paresthesias, radicular pain, vertigo or weakness Psychiatric Psychiatric: Reports systems reviewed and no addt'l complaints, except as documented and none; Denies behavioral changes, confusion, difficulty concentrating, hallucinations, suicidal ideation, tactile hallucinations or visual hallucinations Endocrine Endocrinology: Denies none, cold intolerance, excessive sweating, fatigue or heat intolerance Hematologic/Lymphatic Hematologic/Lymphatic: Reports none; Denies anemia, easy bleeding or easy bruising Allergic/Immunologic Allergic/Immunologic ED: Denies as per HPI, none, lip swelling, mouth swelling, throat swelling, tongue swelling or hives EXAM Physical Exam Const Vital Signs: 03/19/21 21:18 Temperature 96.7 F L Temperature Source Temporal Pulse Rate 83 Respiratory Rate 14 Blood Pressure 154/79 H Blood Pressure Mean 104 Pulse Ox 98 Oxygen Delivery Method Room Air Positive well nourished and well developed General Appearance ED: well developed and NAD HEENT Reports TM's clear and moist mucous membranes normocephalic and atraumatic; Negative for trauma or tenderness Tympanic Membrane ED: Yes TM's clear Eyes PERRL and EOMs intact bilaterally General Eye ED: Negative for pale conjunctiva or scleral icterus Neck no lymphadenopathy, supple and no JVD General: Negative for tenderness Chest Wall inspection of chest normal and palpation of chest normal Chest: Negative for tenderness Resp normal respiratory effort and clear to auscultation bilaterally Effort and Inspection: Negative for respiratory distress or pain with movement Auscultation: Negative for rhonchi, wheezes or diminished lung sounds Cardio regular rate, regular rhythm, S1 normal heart sound, S2 normal heart sound and no murmurs Peripheral Pulses: pulses 2+ throughout GI normal to inspection, nondistended, normoactive bowel sounds, soft to palpation, non-tender, non-distended and no masses GI Narrative: On rectal exam. Patient is noted to have a superficial vein at the 10 o'clock position on the rectum with superficial ulceration small amount of blood oozing from this area. On rectal exam there was no masses palpated within the rectal vault or internal hemorrhoids noted. Back/Spine no CVA tenderness and no thoracic nor lumbar tenderness Extremity normal to inspection General Extremety ED: Negative for edema General Extremity: Negative for edema Neuro oriented x3, CN's II-XII intact bilaterally, no sensory deficits noted and gait normal Sensorium / Orientation: awake, alert, oriented to person, oriented to place and oriented to time Motor Exam: strength 5/5 throughout and strength abnormal Psych mental status grossly normal Skin no rashes or lesions noted and no wounds MDM MDM MDM Narrative Medical decision making narrative: Patient has a superficial vein at the rectum that is the source of the bleeding I suspect. Her H&H is normal and her abdomen is benign. Vital signs are stable. Patient looks well. She will be discharged home and advised to follow-up with her medical technical writer. She is advised to return if persistent heavy bleeding, abdominal pain, fever, or condition should worsen anyway. Lab Data Attestation: I reviewed the patient's lab results. Labs: Laboratory Results - last 24 hr 03/19/21 22:00 WBC 6.5 RBC 4.45 Hgb 12.7 Hct 38.3 MCV 86.1 MCH 28.5 MCHC 33.2 RDW Std Deviation 40.1 RDW Coeff of Ada 12.8 Plt Count 242 MPV 10.7 Immature Gran % (Auto) 0.300 Neut % (Auto) 50.2 Lymph % (Auto) 36.8 Obion % (Auto) 9.3 Eos % (Auto) 2.9 Baso % (Auto) 0.5 Absolute Neuts (auto) 3.2 Absolute Lymphs (auto) 2.38 Nucleated RBC % 0 Discharge Plan Triage Chief Complaint: GI Bleed ED Provider: Kevin Ac Dx/Rx/DC Orders Clinical Impression: Bleeding external hemorrhoids Instructions: ED Lower GI Bleeding (Stable) Prescriptions: No Action cholecalciferol (vitamin D3) 50 mcg (2,000 unit) capsule 50 mcg PO DAILY RF: 0 ascorbic acid (vitamin C) 1,000 mg tablet 1 g PO DAILY RF: 0 loperamide [Imodium A-D] 2 mg capsule 2 mg PO Q6H PRN (Reason: Anxiety) RF: 0 nebivolol 5 mg tablet 5 mg PO DAILY RF: 0 L.acidoph, paracasei,B. lactis 1 EACH capsule 1 ea PO DAILY RF: 0 omeprazole 20 MG capsule 20 mg PO DAILY RF: 0 lorazepam 1 MG tablet 1 mg PO BID PRN PRN (Reason: Anxiety) RF: 0 Primary Care Provider: Darlene Mcnulty Referrals: Darlene Mcnulty DO [Primary Care Provider] - Delmar Oviedo MD [NON-STAFF] - 3-5 Days Disposition Disposition: Home, self care
[2021-03-19 22:16] LABS: Absolute Lymphocyte Count 2.38 X10^3/uL (0.83-4.51); Absolute Neutrophil Count 3.2 X10^3/uL (2.0-7.7); Basophil# 0.03 X10^3/uL; Basophil% 0.5 % (0-1); Eosinophil# 0.19 X10^3/uL; Eosinophils% 2.9 % (0-5); Hematocrit 38.3 % (37-47); Hemoglobin 12.7 g/dL (12.0-15.0); Lymphocyte # 2.38 X10^3/ul (0.83-4.51); Lymphocyte % 36.8 % (19-41); Mean Corp Hgb Conc 33.2 g/dL (32-36); Mean Corpuscular Hgb 28.5 pg (27.0-32.0); Mean Corpuscular Volume 86.1 fL (81-99); Mean Platelet Vol. 10.7 fl (6.2-12.0); Monocyte% 9.3 % (0-10); NRBC Flagged by Analyzer 0 % (0-5); Neutrophil # 3.24 X10^3/uL (2.7-7.7); Neutrophil % 50.2 % (47-70); Platelet Count 242 K/mm3 (150-450); RBC Distribution Width CV 12.8 % (11.6-14.6); RBC Distribution Width SD 40.1 fl (35.1-43.9); Red Blood Count 4.45 M/mm3 (4.2-5.4); White Blood Count 6.5 K/mm3 (4.4-11.0)
[2021-03-19 23:05] VITALS: BP 150/60; PULSE 82; RESP 18; O2SAT 98
== END 2021-03-19 23:06 | disposition home or self-care (01) ==
PROVIDERS: Emergency Provider Emergency Medicine; PCP Family Medicine
DX: K64.4 Residual hemorrhoidal skin tags (principal); K21.9 Gastro-esophageal reflux disease without esophagitis; G47.33 Obstructive sleep apnea (adult) (pediatric); K58.9 Irritable bowel syndrome, unspecified; I34.1 Nonrheumatic mitral (valve) prolapse; F17.200 Nicotine dependence, unspecified, uncomplicated; Z79.1 Long term (current) use of non-steroidal anti-inflammatories (NSAID)
CPT/HCPCS: 36415; 85025; 99282

== ENCOUNTER 2021-05-04 16:19 | Emergency (ER) | payer MEDICAID, SELFPAY ==
[2021-05-04 16:20] VITALS: BP 128/75; PULSE 89; RESP 16; TEMP 36.5; O2SAT 98; BMI 34.4
--- NOTE | 2021-05-04 16:33 | EKG12_ITS ---
Test Reason : SOB Blood Pressure : / mmHG Vent. Rate : 081 BPM Atrial Rate : 081 BPM P-R Int : 108 ms QRS Dur : 092 ms QT Int : 372 ms P-R-T Axes : 046 031 035 degrees QTc Int : 432 ms Sinus rhythm with short LA Otherwise normal ECG Confirmed by KATEY HARP, REMBERTO ([id number]), film editor supervisor ROSA PATEL ([id number]) on 05/08/2021 1:03:57 PM Referred By: WATSON Confirmed By:REMBERTO DEL TORO MD
--- NOTE | 2021-05-04 16:34 | EX.ED.DYSGE1 ---
HPI History of Present Illness Chief Complaint: Shortness of Breath Detail of Chief Complaint: Shortness of breath that started 2 hours ago Informant: patient Narrative Narrative: Patient presents to the emergency department complaining of shortness of breath and feeling like she cannot take a full breath. Patient drove herself to the ER. Symptoms started 2 hours ago while watching movies. She denies any chest pain. She denies recent travel or surgery. She does have history of Chiari malformation and is scheduled to follow-up with a neurologist next month to evaluate for possible surgical intervention. Patient states that a week ago she was seen at another ER with strokelike symptoms and had an MRI of her brain. Patient is not sure if her shortness of breath is related to her Chiari malformation issues. Patient does have history of anxiety and currently feels anxious. Patient is tearful. She denies recent travel or surgery. No history of PE or DVT. Prior similar symptoms: No PFSH [facility] Medical History (Updated 05/04/21 @ 17:[address] Kevin Ac, DO) Alcohol abuse Chiari I malformation Chronic headaches COVID-19 virus detected (08/2020) Depression Encounter for sterilization Fatigue GERD (gastroesophageal reflux disease) History of pneumonia History of pulmonary hypertension Iron deficiency anemia due to chronic blood loss Nicotine dependence Nonrheumatic mitral (valve) prolapse Obesity Obstructive sleep apnea POTS (postural orthostatic tachycardia syndrome) Snoring Supraventricular tachycardia UTI (urinary tract infection) Home Medications L.acidoph, paracasei,B. lactis 1 ea PO DAILY 12/09/18 [History Last Taken Unknown] lorazepam 1 mg PO BID PRN PRN 12/09/18 [History Last Taken Unknown] omeprazole 20 mg PO DAILY 12/09/18 [History Last Taken 12/12/18] ascorbic acid (vitamin C) 1,000 mg tablet 1 g PO DAILY tab 08/24/20 [History Last Taken Unknown] cholecalciferol (vitamin D3) 50 mcg (2,000 unit) capsule 50 mcg PO DAILY 08/24/20 [History Last Taken Unknown] loperamide 2 mg capsule 2 mg PO Q6H PRN 11/25/20 [History Last Taken Unknown] nebivolol 5 mg tablet 5 mg PO DAILY tablet 02/03/21 [History Last Taken Unknown] Allergy/AdvReac Type Severity Reaction Status Date / Time amoxicillin [Amoxicillin] Allergy Other Verified 05/04/21 16:22 metronidazole [From Flagyl] Allergy Other Verified 05/04/21 16:22 Metronidazole HCl Allergy Other Verified 05/04/21 16:22 [From Flagyl] NSAIDS (Non-Steroidal Allergy Angioedema Verified 05/04/21 16:22 Anti-Inflamma oxycodone HCl [From Percocet] AdvReac Other Verified 05/04/21 16:22 Family History Father Sleep apnea Sister Hypertension Thyroid disorder Grandmother Cancer lung Diabetes Grandfather Cancer lung Mother Thyroid disorder Surgical History History of bilateral salpingectomy History of breast augmentation Social History (Updated 02/03/21 @ 15:[address] Jimmy Peters MD) Smoking Status: Former smoker alcohol intake: current details: Occasional substance use type: does not use ROS ROS ED Constitutional Constitutional ED: Reports systems reviewed and no addt'l complaints, except as documented; Denies body ache(s), change in weight or chills Eyes Eyes: Denies acute decrease in peripheral vision, change in vision, double vision or loss of vision ENT ENT ED: Reports none; Denies ear pain, lip swelling, loss taste/smell, neck pain, otalgia or sore throat Cardiovascular Cardiovascular: Reports none; Denies abdominal pain, chest pain with activity, leg edema, lightheadedness, palpitations, rapid heart rate or syncope Respiratory/Chest Respiratory/Chest: Reports none and dyspnea; Denies change in mental status, dry cough, hemoptysis, shortness of breath at rest or shortness of breath with exertion Gastrointestinal Gastrointestinal: Reports none; Denies abdominal pain, change in stool character, diarrhea, hematemesis, hematochezia, melena, rectal bleeding or vomiting Genitourinary Genitourinary ED: Reports none; Denies abdominal discomfort, anuria, dysuria, genital pain or polyuria Musculoskeletal Musculoskeletal: Reports none; Denies arthralgias, back pain, difficulty walking, extremity pain, muscle weakness or myalgias Integumentary Reports none; Denies abscess or rash Neurologic Neurologic: Reports none; Denies abnormal gait, confusion, focal weakness, frequent falls, headache(s), loss of vision, numbness, paresthesias, radicular pain, vertigo or weakness Psychiatric Psychiatric: Reports systems reviewed and no addt'l complaints, except as documented and none; Denies behavioral changes, confusion, difficulty concentrating, hallucinations, suicidal ideation, tactile hallucinations or visual hallucinations Endocrine Endocrinology: Denies none, cold intolerance, excessive sweating, fatigue or heat intolerance Hematologic/Lymphatic Hematologic/Lymphatic: Reports none; Denies anemia, easy bleeding or easy bruising Allergic/Immunologic Allergic/Immunologic ED: Denies as per HPI, none, lip swelling, mouth swelling, throat swelling, tongue swelling or hives EXAM Physical Exam Const Vital Signs: 05/04/21 16:20 05/04/21 16:29 Temperature 97.7 F L Temperature Source Temporal Pulse Rate 89 Respiratory Rate 16 Respiratory Effort Normal Short of Breath Respiratory Depth Normal Blood Pressure 128/75 H Blood Pressure Mean 92 Pulse Ox 98 Oxygen Delivery Method Room Air Positive well nourished and well developed General Appearance ED: well developed and NAD HEENT Reports TM's clear and moist mucous membranes normocephalic and atraumatic; Negative for trauma or tenderness Tympanic Membrane ED: Yes TM's clear Eyes PERRL and EOMs intact bilaterally General Eye ED: Negative for pale conjunctiva or scleral icterus Neck no lymphadenopathy, supple and no JVD General: Negative for tenderness Chest Wall inspection of chest normal and palpation of chest normal Chest: Negative for tenderness Resp normal respiratory effort and clear to auscultation bilaterally Effort and Inspection: Negative for respiratory distress or pain with movement Auscultation: Negative for rhonchi, wheezes or diminished lung sounds Cardio regular rate, regular rhythm, S1 normal heart sound, S2 normal heart sound and no murmurs Peripheral Pulses: pulses 2+ throughout GI normal to inspection, nondistended, normoactive bowel sounds, soft to palpation, non-tender, non-distended and no masses Back/Spine no CVA tenderness and no thoracic nor lumbar tenderness Extremity normal to inspection General Extremety ED: Negative for edema General Extremity: Negative for edema Neuro oriented x3, CN's II-XII intact bilaterally, no sensory deficits noted and gait normal Sensorium / Orientation: awake, alert, oriented to person, oriented to place and oriented to time Motor Exam: strength 5/5 throughout and strength abnormal Psych mental status grossly normal Skin no rashes or lesions noted and no wounds MDM MDM MDM Narrative Medical decision making narrative: Etiology of patient's dyspnea unclear. She is in no respiratory distress and has essentially normal vital signs. Patient's work-up was unremarkable in the department. She was given Ativan 0.5 mg IV and has maybe some slight improvement in the way that she is feeling. I suspect there may be an anxiety component. Lab Data Attestation: I reviewed the patient's lab results. Labs: Laboratory Results - last 24 hr 05/04/21 05/04/21 05/04/21 16:40 16:40 16:40 WBC 6.4 RBC 4.94 Hgb 13.9 Hct 42.2 MCV 85.4 MCH 28.1 MCHC 32.9 RDW Std Deviation 38.8 RDW Coeff of Ada 12.5 Plt Count 281 MPV 11.3 Immature Gran % (Auto) 0.300 Neut % (Auto) 59.8 Lymph % (Auto) 26.4 Faulk % (Auto) 9.9 Eos % (Auto) 3.1 Baso % (Auto) 0.5 Absolute Neuts (auto) 3.8 Absolute Lymphs (auto) 1.68 Nucleated RBC % 0 D-Dimer Quant (PE/DVT) 0.33 Sodium 139 Potassium 3.5 Chloride 107 Carbon Dioxide 28.0 Anion Gap 4 L BUN 11 Creatinine 0.72 Estim Creat Clear Calc 119.06 Est GFR (MDRD) Af Amer 119 Est GFR (MDRD) Non-Af 98 BUN/Creatinine Ratio 15.2 Glucose 128 H Calcium 8.7 Troponin I High Sens < 3.0 L Radiography Diagnostic Testing: Radiology Impression Chest X-Ray 05/04/21 16:39 IMPRESSION: Normal x-ray examination of the chest. Electronically Signed: Antoine Tinajero MD at 16:53 EDT , Service support , EKG Initial EKG: Comments: Sinus rhythm with a ventricular rate of 81 bpm with a short CO interval Discharge Plan Triage Chief Complaint: Shortness of Breath ED Provider: Kevin Ac Dx/Rx/DC Orders Clinical Impression: Acute dyspnea Instructions: ED Dyspnea Prescriptions: No Action cholecalciferol (vitamin D3) 50 mcg (2,000 unit) capsule 50 mcg PO DAILY RF: 0 ascorbic acid (vitamin C) 1,000 mg tablet 1 g PO DAILY RF: 0 loperamide [Imodium A-D] 2 mg capsule 2 mg PO Q6H PRN (Reason: Anxiety) RF: 0 nebivolol 5 mg tablet 5 mg PO DAILY RF: 0 Jasmynacidkimberley burgos B. lactis 1 EACH capsule 1 ea PO DAILY RF: 0 omeprazole 20 MG capsule 20 mg PO DAILY RF: 0 lorazepam 1 MG tablet 1 mg PO BID PRN PRN (Reason: Anxiety) RF: 0 Primary Care Provider: Femi Wan Referrals: Femi Wan DO [Primary Care Provider] - 3-5 Days Disposition Disposition: Home, Self Care
--- NOTE | 2021-05-04 16:39 | RAD_ITS ---
STUDY: X-RAY CHEST REASON FOR EXAM: Female, 35 years old. Acute shortness of breath TECHNIQUE: Single AP portable view of the chest. COMPARISON: None. FINDINGS: EKG leads overlie the chest The lungs are clear and expanded. There is no demonstrated pleural abnormality. Normal size heart. Normal mediastinum and shivam. Normal visualized pulmonary arteries. Normal visualized aortic arch and descending thoracic aorta. Normal visualized thoracic spine. Normal visualized ribs, clavicles, and shoulders. There is no demonstrated abnormality of the visualized soft tissue structures of the upper abdomen. RAD/Chest 1 View (Portable) IMPRESSION: Normal x-ray examination of the chest. Electronically Signed: Antoine Tinajero MD at 16:53 EDT , Service support ,
[2021-05-04 16:59] LABS: Absolute Lymphocyte Count 1.68 X10^3/uL (0.83-4.51); Absolute Neutrophil Count 3.8 X10^3/uL (2.0-7.7); Basophil# 0.03 X10^3/uL; Basophil% 0.5 % (0-1); Eosinophils% 3.1 % (0-5); Hematocrit 42.2 % (37-47); Hemoglobin 13.9 g/dL (12.0-15.0); Lymphocyte # 1.68 X10^3/ul (0.83-4.51); Lymphocyte % 26.4 % (19-41); Mean Corp Hgb Conc 32.9 g/dL (32-36); Mean Corpuscular Hgb 28.1 pg (27.0-32.0); Mean Corpuscular Volume 85.4 fL (81-99); Mean Platelet Vol. 11.3 fl (6.2-12.0); Monocyte# 0.63 X10^3/uL; Monocyte% 9.9 % (0-10); NRBC Flagged by Analyzer 0 % (0-5); Neutrophil % 59.8 % (47-70); Platelet Count 281 K/mm3 (150-450); RBC Distribution Width CV 12.5 % (11.6-14.6); RBC Distribution Width SD 38.8 fl (35.1-43.9); Red Blood Count 4.94 M/mm3 (4.2-5.4); White Blood Count 6.4 K/mm3 (4.4-11.0)
[2021-05-04] MEDS: LORazepam 2 MG/ML Syringe 0.5 MG IV (17:03)
[2021-05-04 17:11] LABS: D-Dimer Quantitative (DVT/PE) 0.33 FEU/ug/m (0.27-0.49)
[2021-05-04 17:19] LABS: Anion Gap 4 (5-15); BUN 11 mg/dL (7-18); BUN/Creat Ratio 15.2 RATIO (10-20); Calcium,Total 8.7 mg/dL (8.5-10.1); Chloride 107 mmol/L (98-107); Creatinine, Serum 0.72 mg/dL (0.55-1.02); EST Glomerular Filtration Rate 98 mL/min (>60); Est Glom Filt Rate - Afr Amer 119 mL/min (>60); Estimated Creatinine Clearance 119.06 ml/min; Glucose 128 mg/dL (74-106); Potassium 3.5 mmol/L (3.5-5.1); Sodium Level 139 mmol/L (136-145); Troponin-I HS < 3.0 pg/mL (3.0-53.7)
[2021-05-04 17:59] VITALS: BP 131/67; O2SAT 96
== END 2021-05-04 18:03 | disposition home or self-care (01) ==
PROVIDERS: Emergency Provider Emergency Medicine; PCP Student in an Organized Health Care Education/Training Program
DX: R06.00 Dyspnea, unspecified (principal); E66.9 Obesity, unspecified; Z86.16 Personal history of COVID-19; Z87.891 Personal history of nicotine dependence
CPT/HCPCS: 71045; 80048; 84484; 85025; 85379; 93005; 96374; 99284; A4216

== ENCOUNTER → 2021-09-13 11:14 | Outpatient (CLI) | payer MEDICAID, SELFPAY ==
[2021-09-13 11:39] LABS: Absolute Lymphocyte Count 1.55 X10^3/uL (0.83-4.51); Absolute Neutrophil Count 1.3 X10^3/uL (2.0-7.7); Basophil# 0.03 X10^3/uL; Basophil% 0.8 % (0-1); Eosinophils% 2.8 % (0-5); Lymphocyte # 1.55 X10^3/ul (0.83-4.51); Lymphocyte % 42.9 % (19-41); Mean Corp Hgb Conc 33.3 g/dL (32-36); Mean Corpuscular Hgb 28.4 pg (27.0-32.0); Mean Corpuscular Volume 85.2 fL (81-99); Mean Platelet Vol. 11.2 fl (6.2-12.0); Monocyte# 0.63 X10^3/uL; Monocyte% 17.5 % (0-10); NRBC Flagged by Analyzer 0 % (0-5); Neutrophil # 1.28 X10^3/uL (2.7-7.7); Neutrophil % 35.4 % (47-70); Platelet Count 215 K/mm3 (150-450); RBC Distribution Width CV 13.2 % (11.6-14.6); RBC Distribution Width SD 41.1 fl (35.1-43.9); Red Blood Count 4.93 M/mm3 (4.2-5.4); White Blood Count 3.6 K/mm3 (4.4-11.0)
[2021-09-13 11:43] LABS: Erythrocyte Sedimentation Rate 6 mm/hr (0-30)
[2021-09-13 12:05] LABS: Ferritin 28 ng/mL (8-252); Iron 79 ug/dL (50-170); Iron Binding Capacity,Total 376 ug/dL (250-450)
[2021-09-13 12:06] LABS: Vitamin B12 351 pg/mL (211-911)
[2021-09-13 12:37] LABS: T4 Free Direct 0.94 ng/dL (0.76-1.46); Thyroid Stim Hormone (TSH) 0.65 uIU/mL (0.358-3.74)
[2021-09-14 17:07] LABS: Endomysial Antibody IgA Negative (Negative)
[2021-09-15 09:17] LABS: Deamidated Gliadin IgA 6 units (0-19); Deamidated Gliadin IgG 2 units (0-19); Immunoglobulin A 309 mg/dL (87-352); t-Transglutaminase IgA <2 U/mL (0-3)
[2021-09-15 13:14] LABS: Vitamin D 1,25-Dihydroxy 48.7 pg/mL (19.9-79.3)
[2021-09-18 12:07] LABS: Anti-Centromere B Ab <0.2 AI (0.0-0.9); Anti-Chromatin <0.2 AI (0.0-0.9); Anti-Jo <0.2 AI (0.0-0.9); Anti-Scleroderma-70 AB <0.2 AI (0.0-0.9); Anti-ribosomal P Antibodies <0.2 AI (0.0-0.9); RNP Ab <0.2 AI (0.0-0.9); SJOGREN'S Anti-SS-A test < 0.2 AI (0.0-0.9); SJOGREN'S Anti-SS-B test < 0.2 AI (0.0-0.9); Smith Ab <0.2 AI (0.0-0.9); Smith/RNP Ab <0.2 AI (0.0-0.9)
[2021-09-18 13:24] LABS: Anti-dsDNA Ab <1 IU/mL (0-9)
[2021-09-19 12:08] LABS: Anti-Centromere B Ab <0.2 AI (0.0-0.9); Anti-Chromatin <0.2 AI (0.0-0.9); Anti-Jo <0.2 AI (0.0-0.9); Anti-Scleroderma-70 AB <0.2 AI (0.0-0.9); RNP Ab <0.2 AI (0.0-0.9); SJOGREN'S Anti-SS-A test < 0.2 AI (0.0-0.9); SJOGREN'S Anti-SS-B test < 0.2 AI (0.0-0.9); Smith Ab <0.2 AI (0.0-0.9)
[2021-09-19 21:27] LABS: Anti-dsDNA Ab <1 IU/mL (0-9)
== END ==
PROVIDERS: Internal Medicine Hematology & Oncology; PCP Student in an Organized Health Care Education/Training Program; Referring Provider Internal Medicine Gastroenterology; Visit Provider Internal Medicine Gastroenterology
DX: R19.7 Diarrhea, unspecified (principal)
CPT/HCPCS: 36415; 82607; 82652; 82728; 82784; 83516; 83540; 83550; 84439; 84443; 84481; 85025; 85652; 86038; 86141; 86225; 86235; 86255

== ENCOUNTER 2021-10-17 10:48 | Day surgery (SDC) | payer MEDICAID, SELFPAY ==
[2021-10-17] VITALS (7 sets, daily range): BP systolic 92–125; BP diastolic 47–71; PULSE 78–87; RESP 16; TEMP 36.1–36.6; O2SAT 97–100; BMI 35.4
--- NOTE | 2021-10-17 | EGD_PTH ---
PATIENT: MALINI NAVARRETE LOC: EN U#:[id number] AGE/SX: 35/F ROOM: RE10/17/[address]: Dr. Wilfredo Cash DO : 1985 BED: DIS: 10/17/2021 SPEC #: [id number] RECD: 10/17/21 15:14 STATUS: SREEDHAR LOY #: [id number] LINDA: 10/17/21 00:[address]: Wilfredo Cash DEPT: SURGICAL PATHOLOGY RECD BY: Christ Livingston ENTERED: 10/18/21 08:44 SP TYPE: EGD BIOPSY OT DR: Dr. Femi Wan DO Tissues: A - Duodenum, NOS B - Gastric mucous membrane C - Esophageal mucous membrane D - Ileum, NOS E - COLON BIOPSY Procedures: Special Stain Group II Surgery Specimen Level IV Alcian Blue/PAS (control) HEADER OPERATION: Colonoscopy, EGD ([facility]) PRE-OP DIAGNOSIS: Diarrhea, iron deficiency anemia, chronic blood loss, GERD TISSUE SUBMITTED: A ? Duodenum biopsy, B ? Gastric body biopsy, C ? Esophagus biopsy, D ? Terminal ileum biopsy, E ? Random colon biopsy MICROSCOPIC DIAGNOSIS A. Duodenum, biopsy: No pathologic change. B. Gastric body, biopsy: Mild chronic gastritis. See comment. C. Esophagus, biopsy: Gastroesophageal junctional mucosa with chronic inflammation. No evidence of goblet cell metaplasia. Focal changes of reflux. See comment. D. Terminal ileum, biopsy: No pathologic change. E. Colon, random biopsy: No pathologic change. AM:jose 10/19/2021 COMMENT B. The results of immunohistochemistry for Helicobacter pylori will be reported separately ([id number]). C. Alcian blue/PAS stain with matched control supports the above diagnosis. MICROSCOPIC DESCRIPTION Slides are reviewed. GROSS DESCRIPTION A - Received in fixative is one container labeled with the patient's name and designated duodenum biopsy. The specimen consists of multiple irregular fragments of light campbell soft tissue that in aggregate measure 2 x 0.8 x 0.1 cm. The specimen is totally submitted in one cassette. B - Received in fixative is one container labeled with the patient's name and designated gastric body. The specimen consists of multiple irregular fragments of light campbell soft tissue that in aggregate measure 0.6 x 0.6 x 0.1 cm. The specimen is totally submitted in one cassette. C - Received in fixative is one container labeled with the patient's name and designated esophagus biopsy. The specimen consists of multiple irregular fragments of light campbell soft tissue that in aggregate measure 0.6 x 0.6 x 0.1 cm. The specimen is totally submitted in one cassette. D - Received in fixative is one container labeled with the patient's name and designated terminal ileum biopsy. The specimen consists of one irregular fragment of light campbell soft tissue that measures 0.5 x 0.3 x 0.1 cm. The specimen is totally submitted in one cassette. E - Received in fixative is one container labeled with the patient's name and designated random colon biopsy. The specimen consists of multiple irregular fragments of light campbell soft tissue that in aggregate measure 3 x 1 x 0.1 cm. The specimen is totally submitted in one cassette. / AM:jose 10/18/21 TC:3 CPT: 40032 x5, 44515
[2021-10-17] MEDS: Lactated Ringers 1,000 ML 15 ML IV (11:00)
--- NOTE | 2021-10-17 12:00 | IMM_PTH ---
PATIENT: MALINI NAVARRETE LOC: EN U#:[id number] AGE/SX: 35/F ROOM: RE10/17/[address]: Dr. Wilfredo Cash DO : 1985 BED: DIS: 10/17/2021 SPEC #: [id number] RECD: 10/18/21 10:14 STATUS: SREEDHAR RESandy #: [id number] LINDA: 10/17/21 12:[address]: Wilfredo Cash DEPT: IMMUNOHISTOCHEMISTRY RECD BY: Tracey Maciel ENTERED: 10/18/21 10:14 SP TYPE: IMMUNO OTHR DR: Dr. Femi Wan DO Tissues: B - Stomach, NOS Procedures: H Pylori (initial) PHYSICIAN & INSTITUTION [place] [id number] SPECIMEN INFORMATION: Tissue Source: B ? Gastric body biopsy Clinical Info: Diarrhea, iron deficiency anemia, GERD Specimen Number: [id number] Coreen CPT code: 50432 METHODOLOGY: Deparaffinized sections of prefer/formalin-fixed tissue or PAP/DQ stained slides are incubated with monoclonal/polyclonal antibodies/oligonucleotide probes. Localization is made via biotin free immunoperoxidase method. Appropriate controls are performed and reacted as expected. Results on target cell population are indicated in the following table: RESULTS: ANTIBODY / CLONE RESULT Block B H Pylori (polyclonal) negative These tests were developed and their performance characteristics determined by [facility]. They may not have been cleared or approved by the U.S. Food and Drug Administration. The FDA has determined that such clearance or approval is not necessary. INTERPRETATION: B. Gastric body, biopsy: Negative for Helicobacter pylori organisms. AM:jose 10/19/2021
--- NOTE | 2021-10-17 12:37 | HP.PCM_ITS ---
History and Physical Date of Admission: 10/17/21 MALINI NAVARRETE, is a 35 F who presents to the office today for Evaluation of chronic symptoms. Started 10 years prior, with progression in the last five years and severe symptoms in the last year. She has seen several GI doctors with several colonoscopies and gastric emptying (she reports as normal). Previous GI doctors gave her a diagnosis of IBS. Last colonoscopy 7 years prior with normal results reported to her. Has been working with dieticians to do a FODMAP, she has not made it out of the elimination phase because all food make her feel ill. Asking about SIBO test. Loperamide, pepto, benefiber, viberzi, another antispasmodic attempted (unable to recall name) - no medications have been helpful to date. Symptoms include diarrhea urgent and occurring about 5 times a day, nausea, bloating with SOB and increased abdominal pressure, heartburn. She has had blood in her stool on isolated incidents, ED visit who told her there was a fissure that opened. Stools are typically dark/black. Admits to smoking (attempting to quit) and alcohol (used to drink a lot, in the last few months she drinks a handful of times in a month). Denies marijuana. Recent trip to [place], symptoms were a little worse following this trip. Did use tap water for ice. She is a vegetarian. ROS Const Constitutional: Positive for fatigue and weight change Gastro GI: Positive for diarrhea, heartburn and nausea/dyspepsia Musc Musculoskeletal: Positive for back pain and restless legs Neuro Neurology: Positive for restless legs Psych Psychiatric: Positive for anxiety and Positive for depression Endo Endocrine: Positive for fatigue and weight change John/Lymp Hematologic/Lymphatic: Positive for easy bruising Exam Const General: cooperative and comfortable Nutritional Appearance: average body habitus and well nourished [facility] Head: normal to inspection Ears: hearing grossly normal bilaterally Nose: external nose normal Face and sinus: normal facial exam Mouth: oral mucosae normal Throat: posterior oropharynx normal Eyes General: appearance normal, both eyes and all related structures Neck Neck: normal visual inspection Chest Chest palpation & inspection: normal inspection of the chest and normal palpation of entire chest wall Resp Effort & Inspection: normal respiratory effort Auscultation: Bilateral: Clear to Auscultation Cardio Palpation: normal PMI Rate: regular rate Rhythm: regular rhythm GI Inspection: normal to inspection Auscultation: normal bowel sounds Percussion: normal to percussion Palpation: no hepatosplenomegaly Skin General: no rashes or lesions noted Neuro General: patient alert Extrem General: normal to inspection Psych Affect: normal affect Quality Reporting Tobacco Screening ([facility] 138) Smoking Status: Former smoker Assessment and Plan Assessment and Plan (1) Diarrhea: Status: Acute Orders: Orders: CRP, High Sensitivity Cardiac Today Erythrocyte Sed Rate Today Miscellaneous Lab Procedure Today Vitamin B12 Today Free T3 Today T4 Free Direct Today Thyroid Stim Hormone (TSH) Today Vitamin D 1,25-Dihydroxy Today Celiac AB,Comprehensive Today Plan - Dr. Villalobos Friend, DO: The differential diagnosis for her diarrhea is medication induced diarrhea secondary to PPIs, IBS with diarrhea, microscopic colitis, celiac disease, lymphocytic colitis, less likely inflammatory bowel disease, small bacterial overgrowth and less likely food intolerance. I will give her a short course of colestipol and Lomotil as needed. (2) Iron deficiency anemia due to chronic blood loss: Status: Chronic Plan - Dr. Villalobos Friend, DO: Patient will undergo upper and lower endoscopy and she will also undergo a capsule endoscopy if that does not reveal any signs of GI blood loss anemia.. (3) GERD (gastroesophageal reflux disease): Status: Chronic Plan - Dr. Villalobos Friend, DO: I await her upper GI tract. We may do a Villagran study to see if she really has gastroesophageal reflux disease. This would be on medical therapy. Plan Details Other Medications: New: colestipol 2 grams (2 x 1 gram) PO BID 120 tabs 0RF diphenoxylate-atropine 2.5-0.025 mg (Lomotil) 1 TAB PO TID PRN 30 tabs 0RF diarrhea I have re-examined the patient. There are no clinical changes since date of exam.
--- NOTE | 2021-10-17 13:24 | OP.EGD_ITS ---
Patient Name: Catherine Garcia Procedure Date: 10/17/2021 12:19 PM Date of : 1985 Age: 35 Procedure: Upper GI endoscopy Indications: Epigastric abdominal pain, Iron deficiency anemia Providers: Wilfredo Cash DO Medicines: See the Anesthesia note for documentation of the administered medications Patient Profile: This is a 35 year old female. Refer to note in patient chart for documentation of history and physical. Patient has symptoms. Complications: No immediate complications. Procedure: Pre-Anesthesia Assessment: - Prior to the procedure, a History and Physical was performed, and patient medications and allergies were reviewed. The risks and benefits of the procedure and the sedation options and risks were discussed with the patient. All questions were answered and informed consent was obtained. Patient identification and proposed procedure were verified by the physician in the pre-procedure area. Mental Status Examination: alert and oriented. Airway Examination: normal oropharyngeal airway and neck mobility. Respiratory Examination: clear to auscultation. CV Examination: normal. Prophylactic Antibiotics: The patient does not require prophylactic antibiotics. Prior Anticoagulants: The patient has taken no previous anticoagulant or antiplatelet agents. ASA Grade Assessment: II - A patient with mild systemic disease. After reviewing the risks and benefits, the patient was deemed in satisfactory condition to undergo the procedure. The anesthesia plan was to use moderate sedation / analgesia (conscious sedation). Immediately prior to administration of medications, the patient was re-assessed for adequacy to receive sedatives. The heart rate, respiratory rate, oxygen saturations, blood pressure, adequacy of pulmonary ventilation, and response to care were monitored throughout the procedure. The physical status of the patient was re-assessed after the procedure. After obtaining informed consent, the endoscope was passed under direct vision. Throughout the procedure, the patient's blood pressure, pulse, and oxygen saturations were monitored continuously. The colonoscope was introduced through the mouth, and advanced to the second part of duodenum. The upper GI endoscopy was accomplished without difficulty. The patient tolerated the procedure well. Moderate Sedation: Moderate (conscious) sedation was administered by the endoscopy nurse and supervised by the endoscopist. The patient's oxygen saturation, heart rate, blood pressure and response to care were monitored. Total physician intraservice time was 15 minutes. Scope In: 12:51:56 PM Scope Out: 12:58:29 PM Total Procedure Duration Time 0 hours 6 minutes 33 seconds Findings: LA Grade A (one or more mucosal breaks less than 5 mm, not extending between tops of 2 mucosal folds) esophagitis with no bleeding was found 34 to 35 cm from the incisors. Biopsies were taken with a cold forceps for histology. Verification of patient identification for the specimen was done. Estimated blood loss was minimal. Localized mild inflammation characterized by congestion (edema) and erythema was found in the gastric body. Biopsies were taken with a cold forceps for histology. Verification of patient identification for the specimen was done. Estimated blood loss was minimal. Patchy mildly erythematous mucosa without active bleeding and with no stigmata of bleeding was found in the second portion of the duodenum. This was biopsied with a cold forceps for histology. Verification of patient identification for the specimen was done. Estimated blood loss was minimal. Impression: - LA Grade A reflux esophagitis. Biopsied. - Chronic gastritis. Biopsied. - Erythematous duodenopathy. Biopsied. Recommendation: - Discharge patient to home. - Patient has a contact number available for emergencies. The signs and symptoms of potential delayed complications were discussed with the patient. Return to normal activities tomorrow. Written discharge instructions were provided to the patient. - Resume previous diet. - Continue present medications. - Await pathology results. - Repeat upper endoscopy in 1 year for surveillance. - Return to GI office in 1 week. Procedure Code(s): --- Professional --- 82363, Esophagogastroduodenoscopy, flexible, transoral; with biopsy, single or multiple 81179, 59, Moderate sedation services provided by the same physician or other qualified health caregivers homecare performing the diagnostic or therapeutic service that the sedation supports, requiring the presence of an independent trained observer to assist in the monitoring of the patient's level of consciousness and physiological status; initial 15 minutes of intraservice time, patient age 5 years or older CPT copyright 2017 [employer]. All rights reserved. The codes documented in this report are preliminary and upon rehabilitation services coordinator review may be revised to meet current compliance requirements. Wilfredo Cash DO 10/17/2021 1:23:33 PM This report has been signed electronically. Number of Addenda: 1 Note Initiated On: 10/17/2021 12:19 PM Addendum Number: 1 Addendum Date: 07/04/2022 7:20:09 AM MAC was used instead of moderate sedation for the patient. Wilfredo Cash DO 07/04/2022 7:20:16 AM This report has been signed electronically.
--- NOTE | 2021-10-17 13:24 | OP.CCLET_ITS ---
07/04/2022 Femi Wan Do Re : Upper GI endoscopy procedure for Catherine Garcia Dear [place] This procedure was performed on Sunday, October 17, 2021. My impressions and recommendations are as follows: Impressions : - LA Grade A reflux esophagitis. Biopsied. - Chronic gastritis. Biopsied. - Erythematous duodenopathy. Biopsied. Recommendations : - Discharge patient to home. - Patient has a contact number available for emergencies. The signs and symptoms of potential delayed complications were discussed with the patient. Return to normal activities tomorrow. Written discharge instructions were provided to the patient. - Resume previous diet. - Continue present medications. - Await pathology results. - Repeat upper endoscopy in 1 year for surveillance. - Return to GI office in 1 week. My findings are described in the full procedure note, which is enclosed. If I can be of further assistance, please feel free to contact me at . Sincerely, Wilfredo Cash DO 10/17/2021 1:23:33 PM This report has been signed electronically.
--- NOTE | 2021-10-17 13:27 | OP.COLON_ITS ---
Patient Name: Catherine Garcia Procedure Date: 10/17/2021 12:58 PM Date of : 1985 Age: 35 Procedure: Colonoscopy Indications: Chronic diarrhea Providers: Wilfredo Cash DO Medicines: See the Anesthesia note for documentation of the administered medications Patient Profile: This is a 35 year old female. Refer to note in patient chart for documentation of history and physical. Patient has symptoms. Last Colonoscopy: 5 years ago. Complications: No immediate complications. Procedure: Pre-Anesthesia Assessment: - Prior to the procedure, a History and Physical was performed, and patient medications and allergies were reviewed. The risks and benefits of the procedure and the sedation options and risks were discussed with the patient. All questions were answered and informed consent was obtained. Patient identification and proposed procedure were verified by the physician in the pre-procedure area. Mental Status Examination: alert and oriented. Airway Examination: normal oropharyngeal airway and neck mobility. Respiratory Examination: clear to auscultation. CV Examination: normal. Prophylactic Antibiotics: The patient does not require prophylactic antibiotics. Prior Anticoagulants: The patient has taken no previous anticoagulant or antiplatelet agents. ASA Grade Assessment: II - A patient with mild systemic disease. After reviewing the risks and benefits, the patient was deemed in satisfactory condition to undergo the procedure. The anesthesia plan was to use moderate sedation / analgesia (conscious sedation). Immediately prior to administration of medications, the patient was re-assessed for adequacy to receive sedatives. The heart rate, respiratory rate, oxygen saturations, blood pressure, adequacy of pulmonary ventilation, and response to care were monitored throughout the procedure. The physical status of the patient was re-assessed after the procedure. After I obtained informed consent, the scope was passed under direct vision. Throughout the procedure, the patient's blood pressure, pulse, and oxygen saturations were monitored continuously. The colonoscope was introduced through the anus and advanced to the terminal ileum. The colonoscopy was performed without difficulty. The patient tolerated the procedure well. The quality of the bowel preparation was good. Moderate Sedation: Moderate (conscious) sedation was administered by the endoscopy nurse and supervised by the endoscopist. The patient's oxygen saturation, heart rate, blood pressure and response to care were monitored. Total physician intraservice time was 15 minutes. Scope In: 1:02:06 PM Scope Withdrawal Time 0 hours 9 minutes 26 seconds Scope Out: 1:14:24 PM Total Procedure Duration Time 0 hours 12 minutes 18 seconds Findings: The perianal and digital rectal examinations were normal. An area of mildly congested mucosa was found in the recto-sigmoid colon, in the descending colon and at the hepatic flexure. Biopsies for histology were taken with a cold forceps from the ascending colon, right colon, left colon, transverse colon, right transverse colon, left transverse colon, descending colon, sigmoid colon and rectum for evaluation of microscopic colitis. Estimated blood loss: none. The terminal ileum appeared normal. Biopsies were taken with a cold forceps for histology. Verification of patient identification for the specimen was done. Estimated blood loss was minimal. Impression: - Congested mucosa in the recto-sigmoid colon, in the descending colon and at the hepatic flexure. Biopsied. - The examined portion of the ileum was normal. Biopsied. Recommendation: - Discharge patient to home. - Resume previous diet. - Continue present medications. - Await pathology results. - Repeat colonoscopy in 5 years for surveillance based on pathology results. - Return to GI office in 2 weeks. Procedure Code(s): --- Professional --- 56906, Colonoscopy, flexible; with biopsy, single or multiple 09019, 59, Moderate sedation services provided by the same physician or other qualified health rn homecare performing the diagnostic or therapeutic service that the sedation supports, requiring the presence of an independent trained observer to assist in the monitoring of the patient's level of consciousness and physiological status; initial 15 minutes of intraservice time, patient age 5 years or older CPT copyright 2017 [employer]. All rights reserved. The codes documented in this report are preliminary and upon invoice coder review may be revised to meet current compliance requirements. Wilfredo Cash DO 10/17/2021 1:26:50 PM This report has been signed electronically. Number of Addenda: 1 Note Initiated On: 10/17/2021 12:58 PM Addendum Number: 1 Addendum Date: 07/04/2022 7:20:23 AM MAC was used instead of moderate sedation for the patient. Wilfredo Cash DO 07/04/2022 7:20:28 AM This report has been signed electronically.
--- NOTE | 2021-10-17 13:27 | OP.CCLET_ITS ---
07/04/2022 Femi Wan Do Re : Colonoscopy procedure for Catherine Garcia Dear [place] This procedure was performed on Sunday, October 17, 2021. My impressions and recommendations are as follows: Impressions : - Congested mucosa in the recto-sigmoid colon, in the descending colon and at the hepatic flexure. Biopsied. - The examined portion of the ileum was normal. Biopsied. Recommendations : - Discharge patient to home. - Resume previous diet. - Continue present medications. - Await pathology results. - Repeat colonoscopy in 5 years for surveillance based on pathology results. - Return to GI office in 2 weeks. My findings are described in the full procedure note, which is enclosed. If I can be of further assistance, please feel free to contact me at . Sincerely, Wilfredo Cash, 10/17/2021 1:26:50 PM This report has been signed electronically.
== END 2021-10-17 14:20 | disposition home or self-care (01) ==
LOC: EN 10:49 → AC 10:53
PROVIDERS: PCP Student in an Organized Health Care Education/Training Program; Referring Provider Student in an Organized Health Care Education/Training Program; Visit Provider Internal Medicine Gastroenterology
PROC: 0DJD8ZZ Inspection of Lower Intestinal Tract, Via Natural or Artificial Opening Endoscopic (ICD-10-PCS; CPT 45378; principal; 2021-10-17 11:55)
DX: R19.7 Diarrhea, unspecified (principal); D50.0 Iron deficiency anemia secondary to blood loss (chronic); K21.00 Gastro-esophageal reflux disease with esophagitis, without bleeding; K29.50 Unspecified chronic gastritis without bleeding; K31.89 Other diseases of stomach and duodenum; Z87.891 Personal history of nicotine dependence
CPT/HCPCS: 43239; 45380; 88305; 88313; 88342; J7120; J2405

== ENCOUNTER → 2021-10-25 15:40 | Outpatient (CLI) | payer MEDICAID, SELFPAY ==
[2021-10-29 21:06] LABS: PROEL- A/G Ratio 1.3 (0.7-1.7); PROEL- Alpha-1 Globulin 0.2 g/dL (0.0-0.4); PROEL- Alpha-2 Globulin 0.7 g/dL (0.4-1.0); PROEL- Beta Globulin 1.2 g/dL (0.7-1.3); PROEL- Gamma Globulin 1.2 g/dL (0.4-1.8); PROEL- Globulin, Total 3.2 g/dL (2.2-3.9); PROEL- TOTAL PROTEIN 7.2 g/dL (6.0-8.5)
[2021-10-30 14:15] LABS: Gastrin, Serum 485 pg/mL (0-115)
== END ==
PROVIDERS: PCP Student in an Organized Health Care Education/Training Program; Visit Provider Internal Medicine Gastroenterology
DX: R19.7 Diarrhea, unspecified (principal)
CPT/HCPCS: 36415; 82941; 84165

== ENCOUNTER 2021-11-22 15:48 | Outpatient (CLI) | payer MEDICAID, SELFPAY ==
[2021-11-22 17:15] LABS: Vitamin B12 387 pg/mL (211-911)
[2021-11-28 12:43] LABS: Anti-Parietal Cell AB, QN 2.2 Units (0.0-20.0)
== END 2021-11-22 23:59 | disposition short-term general hospital (02) ==
LOC: LAB 15:50
PROVIDERS: PCP Student in an Organized Health Care Education/Training Program; Visit Provider Internal Medicine Gastroenterology
DX: K21.9 Gastro-esophageal reflux disease without esophagitis (principal); R19.7 Diarrhea, unspecified
CPT/HCPCS: 36415; 82607; 82746; 83516; 86340

== ENCOUNTER 2021-12-05 13:28 | Outpatient (CLI) | payer MEDICAID, SELFPAY ==
[2021-12-11 08:11] LABS: HPV APTIMA, High Risk Negative (Negative)
== END 2021-12-05 23:59 | disposition home or self-care (01) ==
PROVIDERS: PCP Student in an Organized Health Care Education/Training Program; Visit Provider Obstetrics & Gynecology
DX: Z12.4 Encounter for screening for malignant neoplasm of cervix (principal); N77.1 Vaginitis, vulvitis and vulvovaginitis in diseases classified elsewhere
CPT/HCPCS: 87070; 87075; 87077; 87186; 87205; 87624; 88175; G0145

== ENCOUNTER 2021-12-12 09:05 | Outpatient (CLI) | payer MEDICAID, SELFPAY ==
[2021-12-12 10:20] LABS: Estradiol 38.6 pg/mL; Follicle Stimulating Hormone 6.1 mIU/mL; Free T3 2.9 pg/mL (2.18-3.98); Prolactin 24.8 ng/mL; T4 Free Direct 0.99 ng/dL (0.76-1.46); Thyroid Stim Hormone (TSH) 1.06 uIU/mL (0.358-3.74)
[2021-12-13 13:15] LABS: Sex Hormone-binding Globulin 24.7 nmol/L (24.6-122.0)
[2021-12-19 17:23] LABS: 17-Hydroxyprogesterone 39 ng/dL (.)
== END 2021-12-12 23:59 | disposition home or self-care (01) ==
LOC: WOBLAB 09:06
PROVIDERS: PCP Student in an Organized Health Care Education/Training Program; Visit Provider Obstetrics & Gynecology
DX: E28.1 Androgen excess (principal)
CPT/HCPCS: 36415; 82533; 82627; 82670; 83001; 83498; 84146; 84270; 84403; 84439; 84443; 84481; 82626

== ENCOUNTER 2021-12-18 08:37 | Outpatient (CLI) | payer MEDICAID, SELFPAY ==
[2021-12-18 10:01] LABS: Glucose 75GTT - 30 minutes 214 mg/dL (100-160)
[2021-12-18 10:12] LABS: Insulin 75GTT - 30 MIN 142.6 mU/L (Not Estab.)
[2021-12-18 10:15] LABS: AST(SGOT) 20 U/L (15-37); Alanine Aminotransfer ALT/SGPT 43 U/L (13-56); Albumin, Serum 3.6 g/dL (3.2-5.0); Alkaline Phosphatase 66 U/L (45-117); Bilirubin, Direct < 0.05 mg/dL (0.00-0.30); Globulin 3.8 g/dL (2.2-4.2); Protein, Total 7.4 g/dL (6.4-8.2)
[2021-12-18 10:17] LABS: Vitamin D,25 Hydroxy 39.9 ng/mL
[2021-12-18 11:30] LABS: Insulin 75GTT - Fasting 24.4 mU/L (2.6-37.6)
[2021-12-18 11:56] LABS: Glucose 75GTT - Fasting 107 mg/dL (70-99)
[2021-12-18 13:13] LABS: Glucose 75GTT - 120 minutes 128 mg/dL (70-140)
[2021-12-18 13:14] LABS: Glucose 75GTT - 60 minutes 192 mg/dL (100-160)
[2021-12-18 13:18] LABS: Insulin 75GTT - 60 min 242.9 mU/L (Not Estab)
[2021-12-18 13:20] LABS: Insulin 75GTT - 120 min 218.8 mU/L (Not Estab.)
== END 2021-12-18 23:59 | disposition home or self-care (01) ==
LOC: WOBLAB 08:40
PROVIDERS: PCP Student in an Organized Health Care Education/Training Program; Visit Provider Obstetrics & Gynecology
DX: R63.5 Abnormal weight gain (principal); E55.9 Vitamin D deficiency, unspecified; Z63.72 Alcoholism and drug addiction in family
CPT/HCPCS: 36415; 80076; 82306; 82951; 82952; 83525

== ENCOUNTER 2022-04-28 14:25 | Emergency (ER) | payer MEDICAID, SELFPAY ==
[2022-04-28 14:26] VITALS: BP 133/71; PULSE 86; RESP 14; TEMP 36.3; O2SAT 100; BMI 35.9
--- NOTE | 2022-04-28 15:13 | EKG12_ITS ---
Test Reason : Blood Pressure : / mmHG Vent. Rate : 071 BPM Atrial Rate : 071 BPM P-R Int : 152 ms QRS Dur : 084 ms QT Int : 400 ms P-R-T Axes : 037 036 012 degrees QTc Int : 434 ms Normal sinus rhythm Normal ECG Confirmed by ROLANDA HARP, HOMERO ([id number]), slot editor ROSA PATEL ([id number]) on 05/01/2022 9:57:01 AM Referred By: MARINO Confirmed By:HOMERO ORANTES MD
--- NOTE | 2022-04-28 15:20 | RAD_ITS ---
STUDY: X-RAY CHEST REASON FOR EXAM: Female, 36 years old. chest pain TECHNIQUE: 1 view COMPARISON: 05/04/2021 FINDINGS: Cardiomediastinal silhouette is unremarkable. Costophrenic angles are sharp. Lungs are clear. The trachea is midline. There is no pneumothorax. The bones are grossly intact. RAD/Chest 1 View (Portable) IMPRESSION: No acute cardiopulmonary process. Electronically Signed: Larry Escoto MD at 16:28 EDT ,
[2022-04-28 15:27] LABS: Absolute Lymphocyte Count 2.29 X10^3/uL (0.83-4.51); Absolute Neutrophil Count 1.7 X10^3/uL (2.0-7.7); Basophil# 0.03 X10^3/uL; Basophil% 0.6 % (0-1); Eosinophil# 0.17 X10^3/uL; Eosinophils% 3.5 % (0-5); Hematocrit 42.3 % (37-47); Hemoglobin 13.4 g/dL (12.0-15.0); Lymphocyte # 2.29 X10^3/ul (0.83-4.51); Lymphocyte % 47.7 % (19-41); Mean Corp Hgb Conc 31.7 g/dL (32-36); Mean Corpuscular Hgb 27.2 pg (27.0-32.0); Mean Platelet Vol. 11.7 fl (6.2-12.0); Monocyte# 0.64 X10^3/uL; Monocyte% 13.3 % (0-10); NRBC Flagged by Analyzer 0 % (0-5); Neutrophil # 1.65 X10^3/uL (2.7-7.7); Neutrophil % 34.5 % (47-70); Platelet Count 265 K/mm3 (150-450); RBC Distribution Width CV 14.2 % (11.6-14.6); RBC Distribution Width SD 45.1 fl (35.1-43.9); Red Blood Count 4.92 M/mm3 (4.2-5.4); White Blood Count 4.8 K/mm3 (4.4-11.0)
[2022-04-28 15:38] LABS: D-Dimer Quantitative (DVT/PE) 0.41 FEU/ug/m (0.27-0.49)
[2022-04-28 15:42] LABS: Anion Gap 7 (5-15); BUN 9 mg/dL (7-18); BUN/Creat Ratio 13.2 RATIO (10-20); Calcium,Total 8.9 mg/dL (8.5-10.1); Chloride 106 mmol/L (98-107); Creatinine, Serum 0.68 mg/dL (0.55-1.02); EST Glomerular Filtration Rate 104 mL/min (>60); Est Glom Filt Rate - Afr Amer 126 mL/min (>60); Estimated Creatinine Clearance 124.87 ml/min; Glucose 88 mg/dL (74-106); Potassium 3.9 mmol/L (3.5-5.1); Sodium Level 139 mmol/L (136-145); Troponin-I HS (w/2H Reflex) < 3 pg/mL (3.0-54.0)
--- NOTE | 2022-04-28 16:09 | ED.VIS.DYS ---
HPI History of Present Illness Chief Complaint: Shortness of Breath Narrative Narrative: This is a 36-year-old female presenting with dyspnea. She states she recently flew to [place] and while she was there she became dyspneic. She was seen in the emergency room in [place] and they told her this was likely due to GERD. She states that she returned home early because of the feeling of being short of breath. She states she saw her PCP who also felt like it was GERD. She states she is taking a PPI twice a day all week and is still having the symptoms. She states she wears an apple watch and her heart rate has not been over 100. She does not have any chest pain. No cough, fever, chills. She states that she does have any leg pain or swelling. No history of DVT/PE. Her only current risk factor is recent travel. She is a non-smoker but previously did smoke. She states she does not have any history of COPD or asthma. [facility] Medical History Alcohol abuse Alcohol use Anemia Anxiety Back pain Cardiology follow-up encounter Chiari I malformation Chronic headaches COVID-19 virus detected (08/2020) Depression Diarrhea Encounter for sterilization Fatigue Gastric reflux GERD (gastroesophageal reflux disease) History of atrial fibrillation History of echocardiogram History of IBS History of irregular heartbeat History of pneumonia History of pulmonary hypertension Injury of head and neck Iron deficiency anemia due to chronic blood loss Migraine headache Nicotine dependence (~10/25/21) Nonrheumatic mitral (valve) prolapse Obesity Obstructive sleep apnea POTS (postural orthostatic tachycardia syndrome) Shortness of breath on exertion Smoker Snoring Supraventricular tachycardia UTI (urinary tract infection) Home Medications bisacodyl 5 mg tablet,delayed release 5 mg PO DAILY 04/28/22 [History Last Taken Unknown] omeprazole 20 mg capsule,delayed release 20 mg PO BID 04/28/22 [History Last Taken Unknown] Allergy/AdvReac Type Severity Reaction Status Date / Time amoxicillin [Amoxicillin] Allergy Other Verified 04/28/22 14:28 metronidazole [From Flagyl] Allergy Other Verified 04/28/22 14:28 Metronidazole HCl Allergy Other Verified 04/28/22 14:28 [From Flagyl] NSAIDS (Non-Steroidal Allergy Angioedema Verified 04/28/22 14:28 Anti-Inflamma oxycodone HCl [From Percocet] AdvReac Other Verified 04/28/22 14:28 Family History Father Sleep apnea Sister Hypertension Thyroid disorder Grandmother Cancer lung Diabetes Grandfather Cancer lung Mother Thyroid disorder Surgical History History of bilateral salpingectomy History of breast augmentation Hx of bilateral salpingectomy Hx of colonoscopy Hx of surgical procedure Social History Smoking Status: Former smoker alcohol intake: current details: Occasional substance use type: does not use ROS ROS ED Constitutional Constitutional ED: Denies chills or fever(s) Eyes Eyes: Denies change in vision ENT ENT ED: Denies rhinorrhea or sore throat Cardiovascular Cardiovascular: Denies chest pain or palpitations Respiratory/Chest Respiratory/Chest: Reports dyspnea; Denies cough Gastrointestinal Gastrointestinal: Denies abdominal pain or constipation Genitourinary Genitourinary ED: Denies dysuria or hematuria Musculoskeletal Musculoskeletal: Denies arthralgias or back pain Integumentary Denies abscess or Abrasions Neurologic Neurologic: Denies headache(s) or paresthesias Psychiatric Psychiatric: Denies anxiety or depression EXAM Physical Exam Const Vital Signs: 04/28/22 14:26 04/28/22 15:29 04/28/22 15:29 Temperature 97.3 F L Temperature Source Temporal Pulse Rate 86 Respiratory Rate 14 Respiratory Effort Normal Non-Labored Respiratory Depth Normal Respiratory Pattern Normal Blood Pressure 133/71 H Blood Pressure Mean 91 Pulse Ox 100 Oxygen Delivery Method Room Air Room Air Room Air Positive well nourished General Appearance ED: NAD; Negative for pallor HEENT Reports moist mucous membranes Eyes PERRL and EOMs intact bilaterally Neck no lymphadenopathy Resp normal respiratory effort and clear to auscultation bilaterally Cardio regular rate and regular rhythm Extremity normal to inspection Neuro oriented x3 and CN's II-XII intact bilaterally Sensorium / Orientation: alert Psych mental status grossly normal Thought Process: normal thought process Skin General Skin Exam: Negative for jaundice or pallor MDM MDM MDM Narrative Medical decision making narrative: Patient presenting with dyspnea. She thinks she might have a PE because she recently traveled. She is not having any pain. Technically she is PERC negative. Her Wells score for DVT is -2.Well score for PE is 0. She does have recent travel without any leg pain or swelling. Her EKG on my interpretation is normal sinus rhythm with a ventricular of 71 bpm without sign of ischemic change. CBC and BMP are unremarkable. High-sensitivity troponin is less than 3. D-dimer is 0.41. Chest x-ray on my interpretation shows no acute cardiopulmonary process and the radiologist does agree. Discussed all findings with the patient and she is comfortable being discharged home. She then told me that throughout the years after her diagnosis of POTS she has had intermittent shortness of breath like this multiple times. She also states that when she was in [place] she was walking very briskly up and down hills and that may have caused some of the shortness of breath. I did counseling services director her I did not find anything acute here today and that if she has any new or worsening symptoms to return. Otherwise she is to follow-up with her PCP. Impression: 1. Dyspnea Lab Data Attestation: I reviewed the patient's lab results. Labs: Laboratory Results - last 24 hr 04/28/22 04/28/22 04/28/22 14:34 14:34 14:34 WBC 4.8 RBC 4.92 Hgb 13.4 Hct 42.3 MCV 86.0 MCH 27.2 MCHC 31.7 L RDW Std Deviation 45.1 H RDW Coeff of Ada 14.2 Plt Count 265 MPV 11.7 Immature Gran % (Auto) 0.400 Neut % (Auto) 34.5 L Lymph % (Auto) 47.7 H Meigs % (Auto) 13.3 H Eos % (Auto) 3.5 Baso % (Auto) 0.6 Absolute Neuts (auto) 1.7 L Absolute Lymphs (auto) 2.29 Nucleated RBC % 0 D-Dimer Quant (PE/DVT) 0.41 Sodium 139 Potassium 3.9 Chloride 106 Carbon Dioxide 26.0 Anion Gap 7 BUN 9 Creatinine 0.68 Estim Creat Clear Calc 124.87 Est GFR (MDRD) Af Amer 126 Est GFR (MDRD) Non-Af 104 BUN/Creatinine Ratio 13.2 Glucose 88 Calcium 8.9 Troponin I High Sens < 3 L Radiography Diagnostic Testing: Clinical Impression(s) from Imaging Studies Chest X-Ray 04/28/22 15:20 IMPRESSION: No acute cardiopulmonary process. Electronically Signed: Larry Escoto MD at 16:28 EDT , Discharge Plan Triage Chief Complaint: Shortness of Breath ED Provider: Ab Galloway Dx/Rx/DC Orders Instructions: ED Dyspnea Prescriptions: No Action omeprazole 20 mg capsule,delayed release(DR/EC) 20 mg PO BID Label Comments: take 1 capsule by mouth twice a day bisacodyl 5 mg tablet,delayed release (DR/EC) 5 mg PO DAILY Primary Care Provider: Femi Wan Referrals: Femi Wan DO [Primary Care Provider] - Disposition Disposition: Home, Self Care
[2022-04-28 17:18] LABS: Reflex Troponin-HS? (from REC) Y
[2022-04-28 17:48] LABS: Troponin-I HS < 3 pg/mL (3.0-54.0)
== END 2022-04-28 17:17 | disposition home or self-care (01) ==
PROVIDERS: Emergency Provider Student in an Organized Health Care Education/Training Program; PCP Student in an Organized Health Care Education/Training Program; Visit Provider Student in an Organized Health Care Education/Training Program
DX: R06.00 Dyspnea, unspecified (principal); Z87.891 Personal history of nicotine dependence; I49.8 Other specified cardiac arrhythmias; Z86.16 Personal history of COVID-19
CPT/HCPCS: 71045; 80048; 84484; 85025; 85379; 93005; 99284; A4216

== ENCOUNTER → 2022-06-28 | Outpatient (CLI) | payer MEDICAID, SELFPAY ==
--- NOTE | 2022-06-28 14:47 | PFTCOMP_ITS ---
COMPLETE PULMONARY FUNCTION TEST INTERPRETATION Brief HPI: Patient is a 36-year-old female, currently under the care of Dr. Saba, who presents to [facility] for complete pulmonary function tests secondary to diagnosis of dyspnea. Respiratory therapist reports good effort and reproducible results. Interpretation: Forced expiration spirometry shows no large airways obstructive ventilatory defect with an FEV1 of 85% predicted. There is no significant bronchodilator response by strict ATS criteria. Spirograms are of good quality and plateau normally. The respiratory flow volume loop shows a normal pattern. Lung volumes by body plethysmography show a slightly decreased total lung cap acity at 5.41 L, 86% predicted. All other lung volumes are reduced symmetrically. Diffusion capacity by carbon monoxide is decreased at 60% predicted. The airway resistance is normal. No previous pulmonary function tests were available for review. Impression: Mild restrictive ventilatory defect with a disproportionate reduction diffusion capacity
== END | disposition home or self-care (01) ==
LOC: PSN 08:08
PROVIDERS: PCP Student in an Organized Health Care Education/Training Program; Referring Provider Internal Medicine Critical Care Medicine; Visit Provider Internal Medicine Critical Care Medicine
DX: R06.00 Dyspnea, unspecified (principal); R06.02 Shortness of breath
CPT/HCPCS: 94060; 94726; 94729

== ENCOUNTER → 2022-07-03 | Outpatient (CLI) | payer MEDICAID, SELFPAY ==
[2022-07-03 12:48] VITALS: PULSE 107; PULSE 111; PULSE 112; PULSE 114; PULSE 86; PULSE 90; PULSE 97; O2SAT 96; O2SAT 97; O2SAT 98; O2SAT 99
--- NOTE | 2022-07-04 10:05 | PCM.PSN.6M ---
PSN 6 Minute Walk Test 6 Minute Walk Test 6 Minute Walk Test: 6 Minute Walk Test PSN:6-Minute Walk Test Start: 07/03/22 12:47 Freq: Status: Active Protocol: [id number] Document 07/03/22 12:48 [facility] (Rec: 07/03/22 12:52 [facility] [id number]) 6 Minute Walk Test Date Performed 07/03/22 Time Performed 12:30 Height 5 ft 10 in Weight: 250 lb Weight in Pounds 250.[address]: Duncan Saba Assistive device used: None Pre-test Oxygen Delivery Method Room Air Pulse Ox (%) 98 Pulse Rate (60-100 beats/min) 86 Dyspnea Vita Scale (0-10) 4 Reported Symptoms Increased Work of Breathing 1st minute Oxygen Delivery Method Room Air Pulse Ox (%) 97 Pulse Rate (60-100 beats/min) 97 Dyspnea Vita Scale (0-10) 4 Number of Rests Taken 0 Reported Symptoms Increased Work of Breathing 2nd minute Oxygen Delivery Method Room Air Pulse Ox (%) 96 Pulse Rate (60-100 beats/min) 107 H Dyspnea Vita Scale (0-10) 5 Number of Rests Taken 0 Reported Symptoms Increased Work of Breathing 3rd minute Pulse Ox (%) 97 Pulse Rate (60-100 beats/min) 114 H Dyspnea Vita Scale (0-10) 5 Number of Rests Taken 0 Reported Symptoms Increased Work of Breathing 4th minute Oxygen Delivery Method Room Air Pulse Ox (%) 96 Pulse Rate (60-100 beats/min) 114 H Dyspnea Vita Scale (0-10) 5 Number of Rests Taken 0 Reported Symptoms Increased Work of Breathing 5th minute Oxygen Delivery Method Room Air Pulse Ox (%) 97 Pulse Rate (60-100 beats/min) 112 H Dyspnea Vita Scale (0-10) 5 Number of Rests Taken 0 Reported Symptoms Increased Work of Breathing 6th minute Oxygen Delivery Method Room Air Pulse Ox (%) 98 Pulse Rate (60-100 beats/min) 111 H Dyspnea Vita Scale (0-10) 5 Number of Rests Taken 0 Reported Symptoms Increased Work of Breathing Post-test Oxygen Delivery Method Room Air Pulse Ox (%) 99 Pulse Rate (60-100 beats/min) 90 Dyspnea Vita Scale (0-10) 4 Reported Symptoms Increased Work of Breathing Full Laps Walked 21 Partial Lap, Number of Tiles Walked 7 Total Distance Walked (ft) 1246 Interpretation Interpretation: The patient ambulated 1246 feet over the course of 6 minutes beginning on room air without assistive devices. Pretesting oxygen saturation was noted to be 98% on room air. With ambulation, the kj oxygen saturation was 96%. There was no significant exertional oxygen desaturation. Recommendations Recommendations: There is no indication for the use of supplemental oxygen at this time.
== END | disposition home or self-care (01) ==
LOC: PSN 12:27
PROVIDERS: PCP Student in an Organized Health Care Education/Training Program; Referring Provider Internal Medicine Critical Care Medicine; Visit Provider Internal Medicine Critical Care Medicine
DX: R06.02 Shortness of breath (principal)
CPT/HCPCS: 94618

== ENCOUNTER → 2022-07-27 | Outpatient (CLI) | payer MEDICAID, SELFPAY ==
[2022-07-29 09:37] LABS: Gastrin, Serum 71 pg/mL (0-115)
== END | disposition home or self-care (01) ==
PROVIDERS: PCP Student in an Organized Health Care Education/Training Program; Referring Provider Internal Medicine Gastroenterology; Visit Provider Internal Medicine Gastroenterology
DX: R19.7 Diarrhea, unspecified (principal); K21.9 Gastro-esophageal reflux disease without esophagitis; R06.02 Shortness of breath
CPT/HCPCS: 36415; 82941

== ENCOUNTER → 2022-07-30 | Outpatient (CLI) | payer MEDICAID, SELFPAY ==
[2022-08-13 19:38] LABS: 5-HIAA, 24UR 3.9 mg/24 hr (0.0-14.9); 5-HIAA, UR 2.1 mg/L (Undefined)
== END | disposition home or self-care (01) ==
LOC: LABSPEC 11:27
PROVIDERS: PCP Student in an Organized Health Care Education/Training Program; Visit Provider Internal Medicine Gastroenterology
DX: K21.9 Gastro-esophageal reflux disease without esophagitis (principal); R06.02 Shortness of breath; R19.7 Diarrhea, unspecified
CPT/HCPCS: 81050; 83497

== ENCOUNTER 2022-08-14 16:30 | Outpatient (RCR) | payer MEDICAID, SELFPAY ==
--- NOTE | 2022-08-09 12:12 | HP.SP.EV_ITS ---
History - History Date of Eval: 08/09/22 Medical Diagnosis (from RX): J38.3 - Other diseases of vocal cords Previous speech therapy: No Other Relevant Medical History/Diagnoses/Surgery: MALINI NAVARRETE is a 36 year old female who presents to [facility] for a voice evaluation following referral from pulmonology. Pt has a PMH of the following: Alcohol abuse, Anxiety, Chiari I malformation, COVID-19, Depression, Fatigue, GERD (gastroesophageal reflux disease), History of IBS, History of pneumonia, Injury of head and neck, Migraine headache, Nicotine dependence, Nonrheumatic mitral (valve) prolapse, Obesity, Obstructive sleep apnea, POTS (postural orthostatic tachycardia syndrome), Shortness of breath on exertion, Smoker, Snoring, Supraventricular tachycardia, UTI (urinary tract infection). Pt reports first symptoms during her trip in [place] of March 2022. She had to cut her trip short. Per chart review of pulmonology notes, Pt was encouraged to keep a food diary over the next two weeks to watch calorie intake. She reportedly quit smoking 3 months ago. Additionally, per chart review Pt has reported waking up in the middle of the night gasping for air. She is currently going to nursing school. She reportedly has been getting some test results back indicating that there could be something wrong with her adrenal glands, per chart review. Pt reporting GI suspecting carcinoid syndrome. Pt with long hx of GI starting at age 26 where she was on Omeprazole for many years until she developed ulcers - switched to Protonix and added Carafate. GERD symptoms subsiding, all meds discontinued, until recently when they prescribed Omeprazole again. Pt participated in a PFT with pulmonology on 06/28/22 which revealed: Lung volumes by body plethysmography show a slightly decreased total lung capacity at 5.41 L, 86% predicted; Mild restrictive ventilatory defect with a disproportionate reduction diffusion capacity. Medications related to this diagnosis: Bystolic (5 mg); Omeprazole (20mg BID); Ativan (1 mg PRN) Smoking Status: Former smoker Hx Smoking: Yes - 5 CIGARETTES FOR 15 YRS Hx Smoking Cessation Date: 10/11/21 Hx Tobacco Use: Yes - Pain Is pain an issue with your current prescribed condition?: No Patient Allergies - Allergies Allergies amoxicillin [Amoxicillin] Allergy (Verified 08/03/22 13:17) Other metronidazole [From Flagyl] Allergy (Verified 08/03/22 13:17) Other Metronidazole HCl [From Flagyl] Allergy (Verified 08/03/22 13:17) Other NSAIDS (Non-Steroidal Anti-Inflamma Allergy (Verified 08/03/22 13:17) Angioedema oxycodone HCl [From Percocet] Adverse Reaction (Verified 08/03/22 13:17) Other Metoprolol Adverse Reaction (Uncoded 08/03/22 13:17) Nausea/Vom/Diarrhea Subjective Voice - Alcoholic Beverage Intake Intake: Weekly Wine (ounces): 16 Objective Voice - Date of Diagnosis Date of diagnosis: March 2022 Previous Speech Therapy (If yes, describe): No - Observational Assessment Pitch Range in octaves: 3 Maximum Phonation Time in seconds: 18 S/Z Ratio: 1:1 Sustained /s/: 25 Sustained /z/: 25 Ratio: 1:1 Greater than 1:4 (indicates dysfunction): No HDQLIFE - Speech Difficulties - In the past 7 days. It was difficult for other people to understand me.: Never Is was difficult to speak clearly?: Never - In the past 7 days.. How often did you limit your social activites because you had difficulty speaking?: Never - In the past 7 days... I had trouble speaking.: Not at all I was frustrated by my speech difficulties.: Not at all - How much DIFFICULTY do you have... ...saying what you want to say?: No difficulty - Score HDQLIFE Speech Difficulties Raw Score: 6 HDQLIFE Speech Difficulties T - Score: 38 Plan - Plan Plan: Will recommend Pt for skilled outpatient speech therapy to address deficits in vocal function characterized by suspected vocal cord dysfunction. Pt would benefit from training in identifying instances of vocal abuse, providing vocal hygiene solutions, training in diaphragmatic breathing, relaxation techniques, and direct education re: vocal health. Without skilled speech therapy Pt is at risk for pulmonary distress in a variety of social situations. - Recommendations Treatment Warranted: Yes Treatment Warranted: Voice - Progress Prognosis: Excellent - Frequency Frequency: 1x/Week Additional (Frequency): 3 weeks; then follow-up in a month following last appt. Duration: 6 Weeks - Goals that are Established Determination:: Goals will be added/modified as deemed necessary and a ppropriate. Therapy will be discontinued when results of re-evaluation indicate therapy is no longer needed or lack of progress has been documented. - Goal #1-5 Goal #1: Pt will complete a weekly log dictating instances of vocal cord dysfunction including time of day, activity, and stress level on a scale of 1-5 with 1 being mild tension and 5 being complete airway closure. Goal #2: Patient will establish volitional control of respiration evidenced by utilization of diaphragmatic breathing during structured tasks within 1 month of independent use with 100% accuracy. Goal #3: Patient will establish volitional control of respiration evidenced by utilization of rescue breathing during structured tasks within 1 month of independent use with 100% accuracy. Goal #4: To reduce vocal fold tension, Pt will demonstrate neck relaxation techniques with greater than 90% acc independently. Education - Patient has Indicated that the Following Identified Educational Needs: None The Patient has indicated that they have no educational or learning abilities that may effect their care.: Yes - Patient Instruction Patient Education: Diagnosis, Treatment Plan, Goals, Safety Precautions, Home Exercise Program Other Education: Direct education provided re: causes of VCD. Reviewed her PFT which appeared WNL for inhalation. Discussed diaphragmatic and rescue breathing with handout provided for Pt to review prior to next session. Pt would benefit from cont'd education re: the use of these breathing techniques to reduce tension and vocal fold closure. Person Taught: Patient Teaching Method: Discussion, Demonstration, Handout Response to teaching: Return demonstration, Verbalize understanding
--- NOTE | 2022-10-02 16:27 | HP.SP.DC_ITS ---
ST Discharge Summary - Discharged: Discharge: MALINI NAVARRETE is a 36 year old female who presented to [facility] on 08/09/22 following a suspected dx of vocal cord dysfunction. Pt attended initial evaluation with goals created to target relaxation, diaphragmatic breathing, vocal hygiene, and awareness of external stressors causing tension. After evaluation, Pt attended one additional treatment session, however remaining appts were either cancelled or no showed with no additional follow-up visits scheduled by Pt. Pt being discharged from speech therapy caseload on this date 10/02/22 d/t Pt absence in attending additional treatment visits. Thank you for allowing me to participate in the c are of your patient. Will reevaluate at Pt?s request following script from physician.
== END 2022-08-14 19:00 | disposition home or self-care (01) ==
LOC: SP 16:30
PROVIDERS: PCP Student in an Organized Health Care Education/Training Program; Referring Provider Nurse Practitioner Acute Care; Visit Provider Nurse Practitioner Acute Care
DX: J38.3 Other diseases of vocal cords (principal)
CPT/HCPCS: 92507; 92524

== ENCOUNTER → 2022-09-05 | Outpatient (CLI) | payer MEDICAID, SELFPAY | END | disposition home or self-care (01) | LOC: SL 12:51 | PROVIDERS: PCP Student in an Organized Health Care Education/Training Program; Visit Provider Nurse Practitioner Acute Care | DX: G47.10 Hypersomnia, unspecified (principal) | CPT/HCPCS: 95801 ×2; 95806 ==

== ENCOUNTER → 2022-12-06 | Outpatient (CLI) | payer MEDICAID, SELFPAY ==
[2022-12-06 16:24] LABS: Ferritin 10 ng/mL (8-252); Iron 85 ug/dL (50-170); Iron Binding Capacity,Total 407 ug/dL (250-450); PERCENT IRON SATURATION 20.9 % (15.0-55.0)
[2022-12-07 07:37] LABS: Vitamin B12 383 pg/mL (211-911); Vitamin D,25 Hydroxy 31.1 ng/mL
[2022-12-10 17:57] LABS: Vitamin D 1,25-Dihydroxy 44.6 pg/mL (24.8-81.5)
== END | disposition home or self-care (01) ==
LOC: LAB 14:26
PROVIDERS: PCP Student in an Organized Health Care Education/Training Program; Visit Provider Internal Medicine Gastroenterology
DX: R06.02 Shortness of breath (principal)
CPT/HCPCS: 36415; 82306; 82607; 82652; 82728; 83540; 83550

== ENCOUNTER → 2023-02-12 | Outpatient (CLI) | payer OTHER, MEDICAID, SELFPAY ==
[2023-02-15 08:25] LABS: Chlamydia By Nucleic Acid AMP Negative (Negative); Gonococcus By Nucleic Acid AMP Negative (Negative)
== END | disposition home or self-care (01) ==
LOC: LABSPEC 13:24
PROVIDERS: PCP Student in an Organized Health Care Education/Training Program; Referring Provider Nurse Practitioner Women's Health; Visit Provider Nurse Practitioner Women's Health
DX: N76.1 Subacute and chronic vaginitis (principal)
CPT/HCPCS: 87070; 87205; 87491; 87591

== ENCOUNTER 2025-05-04 12:06 | Day surgery (SDC) | payer BC, SELFPAY ==
--- NOTE | 2025-05-03 12:37 | PAT.ANE_ITS ---
Pre-Assessment Diagnosis/Proposed Procedure Planned Operative Procedure(s): EGD Anesthesia History Anesthesia History - pharmacy operations coordinator: Anesthesia History - pharmacy operations coordinator Hx Hospitalization No 05/03/25 10:29 Any Problems With Anesthesia Yes: SEVERE TREMORS 05/03/25 10:29 Cholinesterase deficiency No 05/03/25 10:29 You/Your Family Experience No 05/03/25 10:29 fever (hyperthermia) with Relationship Recent Exposure to Contagious No 07/30/23 14:21 Disease Does patient have nerve No 05/03/25 10:29 stimulator Patient instructed to have device shut off --Does patient have Pacemaker or ICD? When Was Last Pacemaker Check QUESTION #4 FULL TEXT: You/Your Family Experience fever (hyperthermia) with Anesthesia Last Oral Intake Last Oral intake: Last Oral Intake NPO since Meds taken in AM with sips of water? Meds patient instructed to take am of surgery PONV PONV - pharmacy operations coordinator: PONV - pharmacy operations coordinator Female Yes 05/03/25 10:29 HX of Motion Sickness No 05/03/25 10:29 HX of N/V After Surgery No 05/03/25 10:29 Non-Smoker No 05/03/25 10:29 Duration of Surgery greater No 05/03/25 10:29 than 60 minutes Number of Risk Factors 1 05/03/25 10:29 PONV Score Low Risk 05/03/25 10:29 Height & Weight Height & Weight: Anesthesia: Height & Weight Height 5 ft 10 in 04/16/24 11:02 Respiratory Assessment Respiratory Assessment - pharmacy operations coordinator: Respiratory Tract Infection Hx - pharmacy operations coordinator Hx Respiratory Tract Infection No 05/03/25 10:29 STOP Sleep Apnea STOP Sleep Apnea - pharmacy operations coordinator: STOP Sleep Apnea - pharmacy operations coordinator Hx Hypertension No 05/03/25 10:29 Hx Sleep Apnea No 05/03/25 10:29 CPAP No 07/30/23 14:21 BIPAP No 07/30/23 14:21 Do you snore loudly (louder Yes 05/03/25 10:29 than talking or can be heard Do you often feel tired/ No 05/03/25 10:29 fatigued/ sleepy during daytime? Has anyone observed you stop Yes 05/03/25 10:29 breathing during sleep? STOP Results Positive 05/03/25 10:29 QUESTION #5 FULL TEXT : Do you snore loudly (louder than talking or can be heard through closed doors)? Tobacco Use History Tobacco Use History - pharmacy operations coordinator: Tobacco Use History - pharmacy operations coordinator Tobacco Use Cigarettes 07/30/23 14:21 Smoking Status Current some day smoker 05/03/25 10:29 Hx Tobacco Use Yes 05/03/25 10:29 Years Smoking Packs Smoked per Day Smoking Cessation Date was within the last 15 years Hx Smoking Cessation Date 10/11/21 05/03/25 10:29 Hx Smoking Cessation No 05/03/25 10:29 Counseling Hematologic Medial History Hematologic Hx - pharmacy operations coordinator: Hematologic Medical Hx - community outreach manager Hx of Blood Transfusion No 05/03/25 10:29 Hx of Transfusion in last 3 No 05/03/25 10:29 Months Date of Last Transfusion (if within last 3 months) Ever experience any problems No 05/03/25 10:29 with transfusion(s)? Specify any problems Hx of Preganancy in last 3 N/A 05/03/25 10:29 Months Nurse Filling Out Transfusion NBUCHER 05/03/25 10:29 & Questions: Date: 05/03/25 05/03/25 10:29 Time: 10:31 05/03/25 10:29 Patient unable to answer at this time (ie. confused, unrespo /Reproduction History /Reproductive History - pharmacy operations coordinator: /Reproductive Hx- pharmacy operations coordinator Hx Now No 05/03/25 10:29 Gestational Age (in weeks): EDC: Hx Hx Para Hx Section SAB No 05/03/25 10:29 [facility] Medical History (Updated 05/03/25 @ 10:38 by Renee Alonso) History of echocardiogram MRSA infection High cholesterol Restless legs Difficulty swallowing Palpitations Anxiety Alcohol use Anemia Back pain Migraine headache Injury of head and neck History of IBS Gastric reflux Smoker Shortness of breath on exertion Cardiology follow-up encounter Diarrhea Bleeding external hemorrhoids Chronic headaches Chiari I malformation Alcohol abuse POTS (postural orthostatic tachycardia syndrome) Nonrheumatic mitral (valve) prolapse Obstructive sleep apnea Obesity COVID-19 virus detected (08/2020) Nicotine dependence Iron deficiency anemia due to chronic blood loss Fatigue GERD (gastroesophageal reflux disease) Depression History of pneumonia Encounter for sterilization UTI (urinary tract infection) Snoring Supraventricular tachycardia Home Medications ?Medication ?Instructions ?Recorded ?Last Taken ?Type lorazepam 1 mg tablet (Ativan) 1 mg PO DAILY PRN anxie ty 07/26/22 Unknown History albuterol sulfate 90 mcg/actuation 2 puff inhalation Q 4H PRN 08/03/22 Unknown Rx aerosol inhaler (Ventolin HFA) shortness of breath or wheezing #18 grams scopolamine base 1 mg over 3 days 1 patch transdermal Q3D #24 ea 01/21/23 Unknown Rx transdermal patch prochlorperazine maleate 10 mg 10 mg PO Q6H PRN nausea and 01/20/24 Unknown Rx tablet vomiting 30 days #60 tabs ondansetron 4 mg disintegrating 4 mg PO Q8H PRN nausea and 08/19/24 Unknown Rx tablet vomiting #90 tabs nebivolol 5 mg tablet (Bystolic) 5 mg PO DAILY STOP AT ENOLOL 05/03/25 Unknown History omega 3-cce-rwh-fish oil 1,200 mg 1 cap PO DAILY 05/03 Unknown History (144 mg-216 mg) capsule (Fish Oil) omeprazole 20 mg capsule,delayed 20 mg PO DAILY Unknown History release Allergy/AdvReac Type Severity Reaction Status Date / Time amoxicillin (Amoxicillin) Allergy Other Verified 12/23/24 09:36 metronidazole (From Flagyl) Allergy Other Verified 12/23/24 09:36 Metronidazole HCl (From Allergy Other Verified 12/23/24 09:36 Flagyl) NSAIDS (Non-Steroidal Allergy Angioedema Verified 12/23/24 09:36 Anti-Inflamma metoprolol AdvReac Nausea/Vom/ Verified 12/23/24 09:36 Diarrhea oxycodone HCl (From Percocet) AdvReac Other Verified 12/23/24 09:36 Family History Father Sleep apnea Sister Hypertension Thyroid disorder Grandmother Cancer lung Diabetes Grandfather Cancer lung Mother Thyroid disorder Surgical History History of breast implant removal (~10/07/23) History of esophagogastroduodenoscopy (09/2021) Hx of colonoscopy Hx of bilateral salpingectomy Hx of surgical procedure History of bilateral salpingectomy History of breast augmentation Social History Smoking Status: Current some day smoker tobacco type: cigarettes quit status: considering quitting alcohol intake: current alcohol intake frequency: a few times a week Alcohol type: wine substance use type: does not use caffeine: Yes Type: coffee Number of servings: 1 Audit: Pertinent Findings Pertinent Findings EKG Perinent findings: 04/28/2022. Normal sinus rhythm 71 bpm. Echo (EF%) pertinent findings: 12/02/2020. Normal size function EF 55%. Consult pertinent findings: 04/16/2024. Rapid palpitations. Event monitor May 2022 showed normal sinus rhythm. Sinus tachycardia and sinus ar rhythmias. Average heart rate of 82 correlated with PACs. Consider event monitor to assess further. Final diagnosis of postural orthostatic tachycardia syndrome. Recommendation Anesthesia Recommendation Anesthesia recommendation: OPTIMIZED for anesthesia
[2025-05-04 12:46] VITALS: BP 123/61; PULSE 85; RESP 16; TEMP 36.6; O2SAT 97; BMI 36.2
[2025-05-04] MEDS: Lactated Ringers 1,000 ML 15 ML IV (12:49)
--- NOTE | 2025-05-04 13:15 | EGD_PTH ---
PATIENT: MALINI NAVARRETE LOC: EN U#:[id number] AGE/SX: 39/F ROOM: RE05/04/[address]: Dr. Wilfredo Cash DO : 1985 BED: DIS: 05/04/2025 SPEC #: [id number] RECD: 05/04/25 15:20 STATUS: SREEDHAR LOY #: [id number] LINDA: 05/04/25 13:[address]: Wilfredo Cash DEPT: SURGICAL PATHOLOGY RECD BY: Paco Garcias Tissues: A - Esophagus, NOS B - Duodenum, NOS C - Gastric mucous membrane Procedures: Immunohistochemical Stains Surgery Specimen Level IV HEADER OPERATION: EGD with biopsy and esophageal dilatation PRE-OP DIAGNOSIS: GERD, vocal cord dysfunction, difficulty swallowing TISSUE SUBMITTED: A- Distal esophagus biopsy, B- Duodenum biopsy, C- Gastric body biopsy MICROSCOPIC DIAGNOSIS A. Esophagus, distal, biopsies: * Oxynto-cardiac mucosa with slight chronic inflammation * No goblet cell metaplasia is identified * No squamous epithelium is present B. Small intestine, duodenum: * Benign without active inflammation C. Stomach, body: * Fundic mucosa with slight chronic inflammation * An immunohistochemical stain for Helicobacter pylori-like organisms is negative A. MICROSCOPIC DESCRIPTION Slides are reviewed. All matched controls reacted appropriately. These tests were developed and their performance characteristics determined by [facility]. They may not have been cleared or approved by the [place]. Food and Drug Administration. The FDA has determined that such clearance or approval is not necessary. The above immunohistochemical/dualISH markers are microscopically reviewed and interpreted by the Pathologist. GROSS DESCRIPTION A. Received in fixative is one container labeled with the patient's name and designated Distal esophagus biopsy. The specimen consists of two irregular fragments of light campbell tissue that in aggregate measure 0.4 and 0.6 cm. The specimen is totally submitted in one cassette. B. Received in fixative is one container labeled with the patient's name and designated Duodenum biopsy. The specimen consists of multiple irregular fragments of light campbell tissue that in aggregate measure 0.1 to 0.3 cm. The specimen is totally submitted in one cassette. C. Received in fixative is one container labeled with the patient's name and designated Gastric body biopsy. The specimen consists of three irregular fragments of light campbell tissue that in aggregate measure 0.1 to 0.7 cm. The specimen is totally submitted in one cassette. LENCHO/ 05/04/2025 CPT:62812o4,08938
--- NOTE | 2025-05-04 13:44 | PCM.PRE.AN2 ---
ASA Classification* ASA Classification ASA Classification: 3 Assessment & Plan Anesthesia* Anesthesia Assessment Anesthesia Assessment: Discussed sedation and/or anesthesia options, risks, benefits, and alternatives with patient/parents/legal guardian/POA. Questions invited. The patient/parents/legal guardian/POA seems to understand and agrees to proceed with anesthesia plan. Reviewed the physical assessment, medical history, allergy history and patient home medications list prior to surgery/procedure/anesthetic and documented any changes. Performed airway and anesthesia risk assessments. Anesthesia Type Anesthesia Type: MAC History Source History Obtained from:: Patient and Chart Anesthesia Focused Assessment* Temperature: 97.8 F Pulse Rate: 85 Blood Pressure: 123/61 Respiratory Rate: 16 Pulse Ox: 97 Oxygen Delivery Method: Room Air Airway Assessment Mouth opens: >3 cm Mallampati Score: IV Teeth Condition: Caps/Crowns (Patient has several crowns they are all tight.) and Upper (Patient has been bonding on the front four teeth. #7,8,9 and 10.) Neck Range of motion (ROM): Full ROM Labs Anesthesia Preop lab: CBC WBC 4.8 K/mm3 (4.4-11.0) 04/28/22 14:04/28/22 RBC 4.92 M/mm3 (4.2-5.4) 04/28/22 14:04/28/22 Hgb 13.4 g/dL (12.0-15.0) 04/28/22 14:34 04/28/22 Hct 42.3 % (37-47) 04/28/22 14:34 04/28/22 Plt Count 265 K/mm3 (150-450) 04/28/22 14:34 04/28/22 CHEMISTRY Potassium 3.9 mmol/L (3.5-5.1) 04/28/22 14:34 04/28/22 Sodium 139 mmol/L (136-145) 04/28/22 14:34 04/28/22 BUN 9 mg/dL (7-18) 04/28/22 14:34 04/28/22 Creatinine 0.68 mg/dL (0.55-1.02) 04/28/22 14:34 04/28/22 Glucose 88 mg/dL (74-106) 04/28/22 14:04/28/22 TSH 1.06 uIU/mL (0.358-3.74) 12/12/21 09:06 12/12/21 COAG PT 13.0 SECONDS (11.7-14.9) 12/09/18 15:02 12/09/18 Urine Test Negative Negative 12/12/18 06:12 12/12/18 Pre-Assessment Diagnosis/Proposed Procedure Planned Operative Procedure(s): EGD Anesthesia History Anesthesia History - heating and ventilating worker: Anesthesia History - heating and ventilating worker Hx Hospitalization No 05/03/25 10:29 Any Problems With Anesthesia Yes: SEVERE TREMORS 05/03/25 10:29 Cholinesterase deficiency No 05/03/25 10:29 You/Your Family Experience No 05/03/25 10:29 fever (hyperthermia) with Relationship Recent Exposure to Contagious No 05/04/25 12:46 Disease Does patient have nerve No 05/03/25 10:29 stimulator Patient instructed to have device shut off --Does patient have Pacemaker No 05/04/25 12:46 or ICD? When Was Last Pacemaker Check QUESTION #4 FULL TEXT: You/Your Family Experience fever (hyperthermia) with Anesthesia Last Oral Intake Last Oral intake: Last Oral Intake NPO since 08:30 05/04/25 12:46 Meds taken in AM with sips of Yes 05/04/25 12:46 water? Meds patient instructed to see medlist 05/04/25 12:46 take am of surgery Any additional information?: Yes NPO since: 08:30 (Patient water with AM medications at 830.) Meds taken in AM with sips of water?: Yes PONV PONV - heating and ventilating worker: PONV - heating and ventilating worker Female Yes 05/03/25 10:29 HX of Motion Sickness No 05/03/25 10:29 HX of N/V After Surgery No 05/03/25 10:29 Non-Smoker No 05/03/25 10:29 Duration of Surgery greater No 05/03/25 10:29 than 60 minutes Number of Risk Factors 1 05/03/25 10:29 PONV Score Low Risk 05/03/25 10:29 Height & Weight Height & Weight: Anesthesia: Height & Weight Height 5 ft 10 in 05/04/25 12:46 Weight: 114.6 kg 05/04/25 12:46 Body Mass Index (BMI) 36.2 05/04/25 12:46 Respiratory Assessment Respiratory Assessment - heating and ventilating worker: Respiratory Tract Infection Hx - heating and ventilating worker Hx Respiratory Tract Infection No 05/03/25 10:29 STOP Sleep Apnea STOP Sleep Apnea - heating and ventilating worker: STOP Sleep Apnea - heating and ventilating worker Hx Hypertension No 05/03/25 10:29 Hx Sleep Apnea No 05/03/25 10:29 CPAP No 07/30/23 14:21 BIPAP No 07/30/23 14:21 Do you snore loudly (louder Yes 05/03/25 10:29 than talking or can be heard Do you often feel tired/ No 05/03/25 10:29 fatigued/ sleepy during daytime? Has anyone observed you stop Yes 05/03/25 10:29 breathing during sleep? STOP Results Positive 05/03/25 10:29 QUESTION #5 FULL TEXT : Do you snore loudly (louder than talking or can be heard through closed doors)? Tobacco Use History Tobacco Use History - heating and ventilating worker: Tobacco Use History - heating and ventilating worker Tobacco Use Cigarettes 07/30/23 14:21 Smoking Status Current some day smoker 05/03/25 10:29 Hx Tobacco Use Yes 05/03/25 10:29 Years Smoking Packs Smoked per Day Smoking Cessation Date was within the last 15 years Hx Smoking Cessation Date 10/11/21 05/03/25 10:29 Hx Smoking Cessation No 05/03/25 10:29 Counseling Any additional information?: Yes Smoking Status: Current every day smoker (Patient did not smoke today.) Hematologic Medial History Hematologic Hx - heating and ventilating worker: Hematologic Medical Hx - human resource management instructor Hx of Blood Transfusion No 05/03/25 10:29 Hx of Transfusion in last 3 No 05/03/25 10:29 Months Date of Last Transfusion (if within last 3 months) Ever experience any problems No 05/03/25 10:29 with transfusion(s)? Specify any problems Hx of Preganancy in last 3 N/A 05/03/25 10:29 Months Nurse Filling Out Transfusion NBUCHER 05/03/25 10:29 & Questions: Date: 05/03/25 05/03/25 10:29 Time: 10:31 05/03/25 10:29 Patient unable to answer at this time (ie. confused, unrespo /Reproduction History /Reproductive History - heating and ventilating worker: /Reproductive Hx- heating and ventilating worker Hx Now No 05/03/25 10:29 Gestational Age (in weeks): EDC: Hx Hx Para Hx Section SAB No 05/03/25 10:29 Active Medications Active Medications: Current Medications Generic Name Dose Route Start Last Admin Trade Name Freq PRN Reason Stop Dose Admin Lactated Ringer's 1,000 mls @ 15 mls/hr 05/04/25 12:45 05/04/25 12:49 IV 15 mls/hr .Q48H MIHAELA Administration PFSH Medical History History of echocardiogram MRSA infection High cholesterol Restless legs Difficulty swallowing Palpitations Anxiety Alcohol use Anemia Back pain Migraine headache Injury of head and neck History of IBS Gastric reflux Smoker Shortness of breath on exertion Cardiology follow-up encounter Diarrhea Bleeding external hemorrhoids Chronic headaches Chiari I malformation Alcohol abuse POTS (postural orthostatic tachycardia syndrome) Nonrheumatic mitral (valve) prolapse Obstructive sleep apnea Obesity COVID-19 virus detected (08/2020) Nicotine dependence Iron deficiency anemia due to chronic blood loss Fatigue GERD (gastroesophageal reflux disease) Depression History of pneumonia Encounter for sterilization UTI (urinary tract infection) Snoring Supraventricular tachycardia Home Medications ?Medication ?Instructions ?Recorded ?Last Taken ?Type lorazepam 1 mg tablet (Ativan) 1 mg PO DAILY PRN anxiety 07/26/22 Unknown History albuterol sulfate 90 mcg/actuation 2 puff inhalation Q4H PRN 08/03/22 Unknown Rx aerosol inhaler (Ventolin HFA) shortness of breath or wheezing #18 grams scopolamine base 1 mg over 3 days 1 patch transdermal Q3D #24 ea 01/21/23 Unknown Rx transdermal patch prochlorperazine maleate 10 mg 10 mg PO Q6H PRN nausea and 01/20/24 Unknown Rx tablet vomiting 30 days #60 tabs ondansetron 4 mg disintegrating 4 mg PO Q8H PRN nausea and 08/19/24 Unknown Rx tablet vomiting #90 tabs nebivolol 5 mg tablet (Bystolic) 5 mg PO DAILY STOP ATENOLOL 05/03/25 05/04/25 History omega 4-afn-uiz-fish oil 1,200 mg 1 cap PO DAILY 05/03/25 Unknown History (144 mg-216 mg) capsule (Fish Oil) omeprazole 20 mg capsule,delayed 20 mg PO DAILY 05/03/25 Unknown History release Allergy/AdvReac Type Severity Reaction Status Date / Time amoxicillin (Amoxicillin) Allergy Other Verified 05/04/25 12:40 metronidazole (From Flagyl) Allergy Other Verified 05/04/25 12:40 Metronidazole HCl (From Allergy Other Verified 05/04/25 12:40 Flagyl) NSAIDS (Non-Steroidal Allergy Angioedema Verified 12/23/24 09:36 Anti-Inflamma metoprolol AdvReac Nausea/Vom/ Verified 05/04/25 12:40 Diarrhea oxycodone HCl (From Percocet) AdvReac Other Verified 05/04/25 12:40 Family History Father Sleep apnea Sister Hypertension Thyroid disorder Grandmother Cancer lung Diabetes Grandfather Cancer lung Mother Thyroid disorder Surgical History History of breast implant removal (~10/07/23) History of esophagogastroduodenoscopy (09/2021) Hx of colonoscopy Hx of bilateral salpingectomy Hx of surgical procedure History of bilateral salpingectomy History of breast augmentation Social History Smoking Status: Current some day smoker tobacco type: cigarettes quit status: considering quitting alcohol intake: current alcohol intake frequency: a few times a week Alcohol type: wine substance use type: does not use caffeine: Yes Type: coffee Number of servings: 1 Review of Systems (Anesthesia) ROS Narrative System reviewed and no additional complaints, except as documented.
--- NOTE | 2025-05-04 13:50 | PCM.HP.STD ---
HPI - General General Date of Admission: 05/04/25 Date of Service: 05/04/25 Chief Complaint: Dysphagia and abdominal pain HPI Narrative Previous GI establishment which Catherine reports normal endoscopy and gastric emptying studies with a subsequent diagnosis of IBS. *BGI established 09.13.21 for evaluation of diarrhea, iron deficiency anemia due to chronic blood loss, GERD. Onset 2011 include diarrhea five times a day, nausea, bloating SOB and increased abdominal pressure, heartburn and isolated incidents of blood in her stool with increase of severity in the last 5 years. Established with account executive key accounts. Has been working with FODMAP diet though reintroduction of foods makes her ill. Loperamide, pepto, benefiber, viberzi, another antispasmodic attempted (unable to recall name) - no medications have been helpful to date. Colestipol and lomotil ?Biochemical workup CBC, ESR, TIBC, ferritin, CRP, Vit B12, Vit D1,25, TSH, T3, T4, celiac, GERALD comp without pertinent abnormality. Gastrin H485 EGD and colonoscopy 10.17.21. EGD found LA Grade A reflux, chronic gastritis, erythematous duodenopathy. H.Pylori negative Colonoscopy found congested mucosa in recto-sigmoid colon and descending colon without pathologic changes. OV 10.25.21 likely functional diarrhea. Start scopolamine for nausea. OV 12.11.21 she was prescribed Lexapro. Start dicyclomine for abdominal cramping, caused dry mucous membranes. [facility] ED presentation .12.19 with SOB following travel to [place]. No acute or chronic abnormalities noted and discharged. G seen .12.19 with recommendation of 30 day event recorder. ?30-day event recorder noting average HR 81 with PAC that correlate with Sx. Start atenolol. Pulmonary seen 06.12.22 for SOB with recommendation of PFT and weight loss. Pulmonary function test 9.11.18 mild restrictive ventilatory defect with disproportionate reduction diffusion capacity. Pulmonary exercise test .05.18 without significant exertional oxygen desaturation. OV 10.3.22 recommend biochemical workup Biochemical workup gastrin without pertinent abnormality. 5-HIAA urine WNL Chromagranin A H347 Pulmonary 10.05.18 with daytime hypersomnia, notes history of abnormal sleep study + by [facility] but did not quality for PAP by [facility]. Since sleep study she put on more weight. Recommend repeat sleep study. Vocal cord dysfunction could be causing SOB, recommend ST evaluation. ?Sleep study 09.05.22 does not meet GIUSEPPE criteria. ?ST eval 08.09.22 and enrolled in services to address vocal cord dysfunction. Discharged from services 10.02.22 OV 2.9. SOB and diarrhea ? biochemical workup. Start Zenpep ?Biochemical workup Vit D25, Vit D1,25, TIBC, iron, ferritin, Vit B12 without pertinent abnormality. OV 3..24 Pt reports she has tried to stop Omeprazole but has had rebound sx. Is taking Omeprazole 20mg QD and still has some sx. Has daily nausea mostly after meals. Has diarrhea a few times a week. Constant bloating. Some abdominal pain and cramping with greasy foods. OV 2..25 Has been having the globus sensation frequently for a while now and is concerned about it. Has had mild dysphagia and has to really think when she is swallowing. [facility] Medical History (Updated 05/04/25 @ 13:[address] Villalobos Friend, DO) History of echocardiogram MRSA infection High cholesterol Restless legs Difficulty swallowing Palpitations Anxiety Alcohol use Anemia Back pain Migraine headache Injury of head and neck History of IBS Gastric reflux Smoker Shortness of breath on exertion Cardiology follow-up encounter Diarrhea Bleeding external hemorrhoids Chronic headaches Chiari I malformation Alcohol abuse POTS (postural orthostatic tachycardia syndrome) Nonrheumatic mitral (valve) prolapse Obstructive sleep apnea Obesity COVID-19 virus detected (08/2020) Nicotine dependence Iron deficiency anemia due to chronic blood loss Fatigue GERD (gastroesophageal reflux disease) Depression History of pneumonia Encounter for sterilization UTI (urinary tract infection) Snoring Supraventricular tachycardia Home Medications ?Medication ?Instructions ?Recorded ?Last Taken ?Type lorazepam 1 mg tablet (Ativan) 1 mg PO DAILY PRN anxiety 07/26/22 Unknown History albuterol sulfate 90 mcg/actuation 2 puff inhalation Q4H PRN 08/03/22 Unknown Rx aerosol inhaler (Ventolin HFA) shortness of breath or wheezing #18 grams scopolamine base 1 mg over 3 days 1 patch transdermal Q3D #24 ea 01/21/23 Unknown Rx transdermal patch prochlorperazine maleate 10 mg 10 mg PO Q6H PRN nausea and 01/20/24 Unknown Rx tablet vomiting 30 days #60 tabs ondansetron 4 mg disintegrating 4 mg PO Q8H PRN nausea and 08/19/24 Unknown Rx tablet vomiting #90 tabs nebivolol 5 mg tablet (Bystolic) 5 mg PO DAILY STOP ATENOLOL 05/03/25 05/04/25 History omega 7-dct-ncb-fish oil 1,200 mg 1 cap PO DAILY 05/03/25 Unknown History (144 mg-216 mg) capsule (Fish Oil) omeprazole 20 mg capsule,delayed 20 mg PO DAILY 05/03/25 Unknown History release Allergy/AdvReac Type Severity Reaction Status Date / Time amoxicillin (Amoxicillin) Allergy Other Verified 05/04/25 12:40 metronidazole (From Flagyl) Allergy Other Verified 05/04/25 12:40 Metronidazole HCl (From Allergy Other Verified 05/04/25 12:40 Flagyl) NSAIDS (Non-Steroidal Allergy Angioedema Verified 12/23/24 09:36 Anti-Inflamma metoprolol AdvReac Nausea/Vom/ Verified 05/04/25 12:40 Diarrhea oxycodone HCl (From Percocet) AdvReac Other Verified 05/04/25 12:40 Family History Father Sleep apnea Sister Hypertension Thyroid disorder Grandmother Cancer lung Diabetes Grandfather Cancer lung Mother Thyroid disorder Surgical History History of breast implant removal (~10/07/23) History of esophagogastroduodenoscopy (09/2021) Hx of colonoscopy Hx of bilateral salpingectomy Hx of surgical procedure History of bilateral salpingectomy History of breast augmentation Social History Smoking Status: Current some day smoker tobacco type: cigarettes quit status: considering quitting alcohol intake: current alcohol intake frequency: a few times a week Alcohol type: wine substance use type: does not use caffeine: Yes Type: coffee Number of servings: 1 ROS Constitutional Constitutional: Denies fatigue, fever(s), poor appetite, weight gain or weight loss Gastrointestinal Gastrointestinal: Denies belching, bloating, change in bowel habits, change in stool character, chewing difficulty, coffee ground emesis, constipation, cramping, diarrhea, dyspepsia, dysphagia, early satiety, excessive flatus, fecal incontinence, heartburn, hematemesis, hematochezia, hemorrhoids, loose stools, melena, nausea, odynophagia, rectal bleeding, tenesmus, vomiting or weight changes Vital Signs Vital Signs Vital Signs: 05/04/25 12:46 05/04/25 12:46 Temperature 97.8 F Temperature Source Temporal Pulse Rate 85 Respiratory Rate 16 Respiratory Pattern Normal Blood Pressure 123/61 H Blood Pressure Mean 81 Blood Pressure Source Monitor Blood Pressure Position Semi-Fowlers Blood Pressure Location Left Arm Pulse Ox 97 Oxygen Delivery Method Room Air Weight Weight: 252 lb 10.396 oz Body Mass Index (BMI) 36.2 Physical Exam Const alert, oriented x3, no apparent distress and healthy appearing General Appearance: cooperative GI normal to inspection, nondistended, normoactive bowel sounds, soft to palpation, non-tender and non-distended Percussion: normal to percussion Rectal Exam: deferred Assessment & Plan Assessment/Plan (1) GERD (gastroesophageal reflux disease): (2) Vocal cord dysfunction: (3) Difficulty swallowing: PLAN: Assessment and Plan Assessment and Plan (1) Dysphagia: Plan: Switch from omeprazole to Dexilant. She will also need esophageal manometry likely EGD with Villagran study. (2) Diarrhea: Status: Chronic Plan: Chronic diarrhea with cramping and urgency. She has increased gastrocolic reflex. We discussed this in detail, reviewed different meds. I give her Pancreatic enzyme to take with each meal. I encouraged her not to take any other medicines that are not specifically given for a disease process. That includes all supplements and other [id number] medicines. I think she should also wean off of the omeprazole as it causes her gastrin level to go up leading to worsening diarrhea, bloating and indigestion symptoms. Clinically she is not having symptoms of gastroesophageal reflux disease and endoscopically I did not see gastroesophageal reflux disease. She will benefit from a supplemental fiber treatment (3) Shortness of breath: Status: Chronic Plan: She is currently seeing cardiology and work-up for shortness of breath.
[2025-05-04 13:54] VITALS: BP 123/61; PULSE 85; RESP 16; TEMP 36.6; O2SAT 97
[2025-05-04 14:20] VITALS: BP 123/61; BP 131/59; PULSE 92; RESP 16; TEMP 36.2; O2SAT 98
--- NOTE | 2025-05-04 14:24 | PCM.POST.ANE ---
Anesthesia: Postop Eval I Current Vital Signs Temperature: 97.1 F Pulse Rate: 94 Blood Pressure: 131/59 Respiratory Rate: 16 Pulse Ox: 98 Oxygen Delivery Method: Room Air Assessment Airway patent: Yes Spontaneous unlabored respirations: Yes Mental status: Awake and Calm nausea: No Vomiting: No Anesthesia Complication: No Fluid Hydration Crystalloid volume administer (ml): 400 Total IV fluid infused: 400 Progress Note Anesthesia document: Postop Eval 1 completed: Yes
[2025-05-04 14:25] VITALS: BP 123/61; BP 131/59; BP 131/72; PULSE 91; PULSE 94; RESP 16; TEMP 36.2; O2SAT 98
--- NOTE | 2025-05-04 14:34 | OP.CCLET_ITS ---
05/04/2025 Unknown Referring Re : Upper GI endoscopy procedure for Catherine Garcia Dear Dr. Crowder This procedure was performed on Sunday, May 04, 2025. My impressions and recommendations are as follows: Impressions : - Z-line irregular, 40 cm from the incisors. Biopsied. - Portal hypertensive gastropathy. Biopsied. - Erythematous duodenopathy. Biopsied. Recommendations : - Discharge patient to home. - Resume previous diet. - Continue present medications. - Await pathology results. - Repeat upper endoscopy for surveillance. My findings are described in the full procedure note, which is enclosed. If I can be of further assistance, please feel free to contact me at . Sincerely, Wilfredo Cash, 05/04/2025 2:33:39 PM This report has been signed electronically.
--- NOTE | 2025-05-04 14:34 | OP.EGD_ITS ---
Patient Name: Catherine Garcia Procedure Date: 05/04/2025 1:51 PM Date of : 1985 Age: 39 Procedure: Upper GI endoscopy Indications: Dysphagia, Heartburn, Suspected esophageal reflux Providers: Wilfredo Cash DO Referring MD: Hill Referring Medicines: Monitored Anesthesia Care Patient Profile: This is a 39 year old female. Refer to note in patient chart for documentation of history and physical. Patient has symptoms of chronic epigastric abdominal pain and acute dysphagia. Complications: No immediate complications. Procedure: Pre-Anesthesia Assessment: - Prior to the procedure, a History and Physical was performed, and patient medications and allergies were reviewed. The patient is competent. The risks and benefits of the procedure and the sedation options and risks were discussed with the patient. All questions were answered and informed consent was obtained. Patient identification and proposed procedure were verified by the physician in the pre-procedure area. Mental Status Examination: alert and oriented. Airway Examination: normal oropharyngeal airway and neck mobility. Respiratory Examination: clear to auscultation. CV Examination: normal. Prophylactic Antibiotics: The patient does not require prophylactic antibiotics. Prior Anticoagulants: The patient has taken no anticoagulant or antiplatelet agents except for NSAID medication. ASA Grade Assessment: II - A patient with mild systemic disease. After reviewing the risks and benefits, the patient was deemed in satisfactory condition to undergo the procedure. The anesthesia plan was to use monitored anesthesia care (MAC). Immediately prior to administration of medications, the patient was re-assessed for adequacy to receive sedatives. The heart rate, respiratory rate, oxygen saturations, blood pressure, adequacy of pulmonary ventilation, and response to care were monitored throughout the procedure. The physical status of the patient was re-assessed after the procedure. After obtaining informed consent, the endoscope was passed under direct vision. Throughout the procedure, the patient's blood pressure, pulse, and oxygen saturations were monitored continuously. The gastroscope was introduced through the mouth, and advanced to the fourth part of duodenum. The upper GI endoscopy was accomplished without difficulty. The patient tolerated the procedure well. Scope In: 2:08:11 PM Scope Out: 2:15:41 PM Total Procedure Duration Time 0 hours 7 minutes 30 seconds Findings: The Z-line was irregular and was found 40 cm from the incisors. Biopsies were taken with a cold forceps for histology. Verification of patient identification for the specimen was done. Estimated blood loss was minimal. Mild portal hypertensive gastropathy was found in the cardia and in the gastric body. Biopsies were taken with a cold forceps for histology. Verification of patient identification for the specimen was done. Estimated blood loss was minimal. Biopsies were taken with a cold forceps for Helicobacter pylori testing. Verification of patient identification for the specimen was done. Estimated blood loss was minimal. Patchy mildly erythematous mucosa without active bleeding and with no stigmata of bleeding was found in the duodenal bulb and in the first portion of the duodenum. Biopsies were taken with a cold forceps for histology. Verification of patient identification for the specimen was done. Estimated blood loss was minimal. Impression: - Z-line irregular, 40 cm from the incisors. Biopsied. - Portal hypertensive gastropathy. Biopsied. - Erythematous duodenopathy. Biopsied. Recommendation: - Discharge patient to home. - Resume previous diet. - Continue present medications. - Await pathology results. - Repeat upper endoscopy for surveillance. Procedure Code(s): --- Professional --- 01383, Esophagogastroduodenoscopy, flexible, transoral; with biopsy, single or multiple CPT copyright 2021 [employer]. All rights reserved. The codes documented in this report are preliminary and upon lap grinder review may be revised to meet current compliance requirements. Wilfredo Cash DO 05/04/2025 2:33:39 PM This report has been signed electronically. Number of Addenda: 0 Note Initiated On: 05/04/2025 1:51 PM
[2025-05-04 14:40] VITALS: BP 122/70; BP 123/61; PULSE 79; RESP 16; TEMP 36.3; O2SAT 98
[2025-05-04 14:44] VITALS: BP 123/61
--- NOTE | 2025-05-04 14:55 | PCM.POSTANE2 ---
Anesthesia Postop Eval I Sum Postop Eval Completion status Anesthesia document: Postop Eval 1 completed: Yes Anesthesia Postop Eval I Summary Anesthesia Postop Eval I Summary: Anesthesia Postop Eval I: Assessment Summary Airway patent Yes 05/04/25 14:25 [email or web address] Spontaneous unlabored Yes 05/04/25 14:25 [email or web address] respirations Mental status Awake,Calm 05/04/25 14:25 [email or web address] nausea No 05/04/25 14:25 [email or web address] Vomiting No 05/04/25 14:25 [email or web address] Anesthesia Postop Eval I: Fluid Summary Crystalloid volume administer 400 05/04/25 14:25 [email or web address] (ml) Colloids volume administered ( ml) Blood Product volume administered (ml) Total IV fluid infused 400 05/04/25 14:25 [email or web address] Anesthesia Postop Eval I: Summary Notes Anesthesia Complication No 05/04/25 14:25 [email or web address] Anesthesia Complication Comment: Post-operative progress note Anesthesia: Postop Eval II Evaluation Mental status: Awake and Calm Pain Level: 0 nausea: No Vomiting: No Complications Anesthesia Complication: No
== END 2025-05-04 15:02 | disposition home or self-care (01) ==
LOC: EN 12:07 → AC 12:09
PROVIDERS: Visit Provider Internal Medicine Gastroenterology
PROC: 0DJ08ZZ Inspection of Upper Intestinal Tract, Via Natural or Artificial Opening Endoscopic (ICD-10-PCS; CPT 43235; principal; 2025-05-04 13:10)
DX: K76.6 Portal hypertension (principal); R13.10 Dysphagia, unspecified; E78.00 Pure hypercholesterolemia, unspecified; K21.9 Gastro-esophageal reflux disease without esophagitis; Z86.16 Personal history of COVID-19; Z86.14 Personal history of Methicillin resistant Staphylococcus aureus infection; F17.210 Nicotine dependence, cigarettes, uncomplicated; R19.7 Diarrhea, unspecified; J38.3 Other diseases of vocal cords
CPT/HCPCS: 43239; 88305; 88342; C1769; J2405